=== PATIENT | male | born 1935 | race Hispanic/Latino ===

== ENCOUNTER 2018-10-08 11:52 | Inpatient (IN) | payer MEDICARE ==
[2018-10-08 12:16] VITALS: BMI 29.7
--- NOTE | 2018-10-08 12:43 | ED PDOC ---
Arrival/HPI - General Chief Complaint: Cough, Cold, Congestion Time Seen by Provider: 10/08/18 12:04 Historian: Patient, Family - History of Present Illness Narrative History of Present Illness (Text): 10/08/18 12:40 82 year old male, whose past medical history includes A-fibrillation on Coumadin, hypertension, and hypercholesterolemia, presents to the emergency department complaining of shortness of breath. Patient notes associated fever of 100.7, a productive cough for the past 3 weeks, and a runny nose. Patient saw his PMD earlier today who sent him in the the emergency department for further evaluation. He denies chills, headache, dizziness, chest pain, abdominal pain, nausea, vomiting, diarrhea, back pain, neck pain, or any other complaint. PMD: Dr. 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 - Musculoskeletal/Rheumatological Other/Comment: Ad knee replacement - Psychiatric Hx Depression: No Hx Emotional Abuse: No Hx Physical Abuse: No Hx Substance Use: No - Past Surgical History Past Surgical History: No Previous - Surgical History Hx Orthopedic Surgery: Yes (bilat knee replacement) - Anesthesia Hx Anesthesia: Yes - Suicidal Assessment Feels Threatened In Home Enviroment: No Family/Social History - Physician Review Nursing Documentation Reviewed: Yes Family/Social History: No Known Family HX Smoking Status: Former Smoker Hx Alcohol Use: No (quit 2 months ago) Hx Substance Use: No Hx Substance Use Treatment: No Allergies/Home Meds Allergies/Adverse Reactions: Allergies No Known Allergies Allergy (Verified 08/29/12 13:23) Home Medications: Home Meds Medication Instructions Recorded Confirmed Ascorbic Acid [Vitamin C] 1 tab PO DAILY 10/08/18 10/08/18 Calcium Carbonate [Calcium] 600 mg PO DAILY 10/08/18 10/08/18 Folic Acid 800 mg PO DAILY 10/08/18 10/08/18 Furosemide [Lasix] 1 tab PO DAILY 10/08/18 10/08/18 Glucosamine Sulfate Dipot Chlr 1,500 mg PO DAILY 10/08/18 10/08/18 [Glucosamine] Lisinopril [Zestril] 1 tab PO DAILY 10/08/18 10/08/18 Lovastatin 80 mg PO HS 10/08/18 10/08/18 Magnesium 1 tab PO DAILY 10/08/18 10/08/18 Potassium Chloride [Klor-Con M10] 1 tab PO DAILY 10/08/18 10/08/18 Timolol [Betimol] 1 drop LEFTEYE BID 10/08/18 10/08/18 Travoprost [Travatan Z] 1 drop BOTHEYES DAILY 10/08/18 10/08/18 Verapamil HCl [Verapamil Sr] 1 tab PO DAILY 10/08/18 10/08/18 Warfarin [Coumadin] 1 tab PO DAILY 10/08/18 10/08/18 hydroCHLOROthiazide [Hydrodiuril] 50 mg PO DAILY 10/08/18 10/08/18 Review of Systems - Physician Review All systems were reviewed & negative as marked: Yes - Review of Systems Constitutional: Fevers Respiratory: SOB, Cough, Sputum Cardiovascular: absent: Chest Pain Gastrointestinal: absent: Abdominal Pain, Diarrhea, Nausea, Vomiting Genitourinary Male: absent: Dysuria, Frequency Musculoskeletal: absent: Back Pain, Neck Pain Neurological: absent: Headache, Dizziness Physical Exam Vital Signs Reviewed: Yes Vital Signs Temp Pulse Resp BP Pulse Ox 10/08/18 11:52 98.9 F 60 18 91/73 L 86 L Temperature: Afebrile Blood Pressure: Hypotensive Pulse: Regular Respiratory Rate: Normal Appearance: Positive for: Well-Appearing, Non-Toxic, Comfortable Pain Distress: None Mental Status: Positive for: Alert and Oriented X 3 - Systems Exam Head: Present: Atraumatic, Normocephalic Pupils: Present: PERRL Extroacular Muscles: Present: EOMI Conjunctiva: Present: Normal Mouth: Present: Dry. No: Moist Mucous Membranes Neck: Present: Normal Range of Motion Respiratory/Chest: Present: Wheezes (wheezing bilaterally), Decreased Breath Sounds. No: Respiratory Distress, Accessory Muscle Use Cardiovascular: Present: Regular Rate and Rhythm, Normal S1, S2. No: Murmurs Abdomen: Present: Hernias (ventral hernia that is reducible ). No: Tenderness, Distention, Peritoneal Signs, Rebound, Guarding Back: Present: Normal Inspection Upper Extremity: Present: Normal Inspection. No: Cyanosis, Edema Lower Extremity: Present: Normal Inspection, Edema (+1 pitting edema bilateral lower extremities) Neurological: Present: GCS=15, CN II-XII Intact, Speech Normal Skin: Present: Warm, Dry, Normal Color. No: Rashes Psychiatric: Present: Alert, Oriented x 3, Normal Insight, Normal Concentration Medical Decision Making ED Course and Treatment: 10/08/18 12:40 Impression: 82 year old male who presents to the emergency department complaining of shortness of breath. Differential Diagnosis included but are not limited to: Pneumonia r/o sepsis r/o influenza Plan: -- VBG -- EKG -- Labs -- Chest X-ray -- Duoneb -- SOLU-medrol -- IV Fluids -- Blood Culutre -- Rapid Flu A/B -- Reassess and disposition Prior Visits: Notes and results from previous visits were reviewed. Progress Notes: EKG reviewed, shows: A-fib at 66 bpm with PVC and RBBB. 10/08/18 14:47 Chest X-ray reviewed by radiologist, shows: IMPRESSION: No active disease. 10/08/18 14:30 Patient is saturating at 92 on Oxygen. Lungs have better air entry now and more wheezing noted. He felt better but will continue on neb tx and start on BiPAP. 10/08/18 16:41 Patient's ABG reviewed. Patient lungs are still wheezing but improved. Case was discussed with Dr. Coburn and will admit to telemetry. He recommended Dr. Kenyon/Shayy for Cardiology. He was paged by Animal Behaviorist. Patient stable for Telemetry. 10/08/18 16:[address] Trinh who recommends ASA at this point and serial troponins. - Critical Care Critical Care Minutes: 60 minutes - Lab Interpretations I have reviewed the lab results: Yes - EKG Interpretation Interpreted by ED Physician: Yes Type: 12 lead EKG - Scribe Statement The provider has reviewed the documentation as recorded by the Laineibtong Isaacs Provider Scribe Attestation: All medical record entries made by the Scribe were at my direction and personally dictated by me. I have reviewed the chart and agree that the record accurately reflects my personal performance of the history, physical exam, medical decision making, and the department course for this patient. I have also personally directed, reviewed, and agree with the discharge instructions and disposition. Disposition/Present on Arrival - Present on Arrival Any Indicators Present on Arrival: No History of DVT/PE: No History of Uncontrolled Diabetes: No Urinary Catheter: No History of Decub. Ulcer: No History Surgical Site Infection Following: Orthopedic Procedures, None - Disposition Have Diagnosis and Disposition been Completed?: Yes Diagnosis: Respiratory distress Disposition: HOSPITALIZED Disposition Time: 16:54 Patient Plan: Admission Condition: GUARDED Referrals: Nish Wilcox MD [Primary Care Provider] - Follow up with primary Forms: [employer] ([place])
[2018-10-08] MEDS ORDERED: Albuterol-Ipratrop 3 mg / 0.5 (3 ml) UD IH STA ×3 (12:51→15:20)
[2018-10-08] MEDS ORDERED: Sodium Chloride 0.9% 500 ML IV STA (12:52)
[2018-10-08 13:21] LABS: VENOUS BLOOD GAS BASE EXCESS 5.6 mmol/L (0.0-2.0); VENOUS BLOOD GAS PO2 94 mm/Hg (30-55); VENOUS BLOOD PH 7.35 (7.32-7.43)
[2018-10-08 13:22] LABS: BASO # 0.03 K/mm3 (0.0-2.0); BASO % 0.5 % (0.0-3.0); GRAN # 3.99 (1.4-6.5); GRAN % 62.3 % (50.0-68.0); HEMOGLOBIN 13.5 g/dL (14.0-18.0); LYMPH # 1.5 (1.2-3.4); LYMPH % 23.1 % (22.0-35.0); MEAN CELL VOLUME 98.4 fl (80.0-105.0); MEAN CORPUSCULAR HEMOGLOBIN 31.3 pg (25.0-35.0); MEAN CORPUSCULAR HGB CONC 31.8 g/dl (31.0-37.0); MEAN PLATELET VOLUME 10.7 fl (7.0-11.0); MONO # 0.9 (0.1-0.6); MONO % 14.1 % (1.0-6.0); RBC 4.31 10^6/uL (3.5-6.1); RED CELL DISTRIBUTION WIDTH 14.1 % (11.5-14.5); WHITE BLOOD COUNT 6.4 10^3/uL (4.5-11.0)
[2018-10-08 13:28] LABS: BLOOD UREA NITROGEN 17 mg/dL (7-21); CALCIUM 8.9 mg/dL (8.4-10.5); GFR NON-AFRICAN AMERICAN > 60
[2018-10-08 13:29] LABS: INR 3.15; PARTIAL THROMBOPLASTIN TIME 40.6 Seconds (26.9-38.3); PROTHROMBIN TIME 35.6 SECONDS (9.4-12.5)
[2018-10-08 13:56] LABS: B-TYPE NATRIURETIC PEPTIDE 958 pg/mL (0-450); TROPONIN I 0.13 ng/mL
--- NOTE | 2018-10-08 14:12 | RAD ---
Date of service: 10/08/2018 HISTORY: sob r/o pna COMPARISON: No prior. FINDINGS: LUNGS: No active pulmonary disease. PLEURA: No significant pleural effusion identified, no pneumothorax apparent. CARDIOVASCULAR: No aortic atherosclerotic calcification present. Mild to moderate cardiomegaly mild vascular congestion OSSEOUS STRUCTURES: No significant abnormalities. VISUALIZED UPPER ABDOMEN: Normal. OTHER FINDINGS: None. IMPRESSION: No active disease.
[2018-10-08] MEDS ORDERED: cefTRIAXone 1 gm 1 GM/100 ML BAG IVPB STA (16:21)
[2018-10-08 16:31] LABS: ARTERIAL BLOOD GAS HCO3 33.5 mmol/L (21-28); ARTERIAL BLOOD GAS HEMOGLOBIN 13.2 g/dL (11.7-17.4); ARTERIAL BLOOD GAS O2 CAPACITY 18.2 mL/dl (16-24); ARTERIAL BLOOD GAS O2 CONTENT 17.5 ML/dl (15-23); ARTERIAL BLOOD GAS O2 SAT 96.4 % (95-98); ARTERIAL BLOOD GAS PCO2 68 mm/Hg (35-45); ARTERIAL BLOOD GAS TCO2 35.6 mmol.L (22-28)
[2018-10-08 19:15] LABS: VENOUS BLOOD GAS BASE EXCESS 5.3 mmol/L (0.0-2.0); VENOUS BLOOD GAS PO2 58 mm/Hg (30-55)
--- NOTE | 2018-10-08 23:00 | CARD ---
APPROVED REPORT Date of service: 10/08/2018 EKG Measurement Heart [id number] <Conclusion> Atrial fibrillation with premature ventricular or aberrantly conducted complexes Right bundle branch block Nonspecific T wave abnormality Abnormal ECG
--- NOTE | 2018-10-09 04:23 | CP.PCM.HP ---
<Diane Junior - Last Filed: 10/09/18 17:23> History of Present Illness - History of Present Illness History of Present Illness: Please note history as per EMR as patient was uncooperative and agitated and did not want to be interviewed 82 male with PMHx of Afib on coumadin, HTN, HLD presents to ER after a visit to his PMD. Patient reported shortness of breath saturating SpO2 of 83% in the office, accompanied with cough and fever. Patient stated his symptoms started 3 weeks ago however they became progressively worse the last few days. He complained of a productive cough and fever of 100.7F at home. He also complained of a runny nose. His PMD sent him in the the emergency department for further evaluation. 12 Point ROS performed and neg other than stated above PMHx: as above PSHx: knee surgery Med: refer to NOV SH: Former smoker quit many years ago, denies any etoh, or drugs FH: noncontributory Present on Admission - Present on Admission Any Indicators Present on Admission: No Review of Systems - Review of Systems Systems not reviewed;Unavailable: Uncooperative Past Patient History - Infectious Disease Hx of Infectious Diseases: None - Tetanus Immunizations Tetanus Immunization: Unknown - Past Social History Smoking Status: Former Smoker - CARDIAC Hx Cardiac Disorders: Yes Hx Cardia Arrhythmia: Yes (Afib) Hx Congestive Heart Failure: Yes Hx Hypercholesterolemia: Yes Hx Hypertension: Yes - PULMONARY Hx Respiratory Disorders: No Other/Comment: former smoker - NEUROLOGICAL Hx Neurological Disorder: No - HEENT Hx HEENT Problems: Yes Hx Cataracts: Yes Hx Glaucoma: Yes Other/Comment: 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 - RENAL Hx Chronic Kidney Disease: No - ENDOCRINE/METABOLIC Hx Endocrine Disorders: No - HEMATOLOGICAL/ONCOLOGICAL Hx Blood Disorders: No - INTEGUMENTARY Hx Dermatological Problems: No - MUSCULOSKELETAL/RHEUMATOLOGICAL Hx Musculoskeletal Disorders: Yes Hx Falls: No Hx Unsteady Gait: No Other/Comment: Ad knee replacement - GASTROINTESTINAL Hx Gastrointestinal Disorders: No - GENITOURINARY/GYNECOLOGICAL Hx Genitourinary Disorders: No - PSYCHIATRIC Hx Psychophysiologic Disorder: No Hx Depression: No Hx Emotional Abuse: No Hx Physical Abuse: No Hx Substance Use: No - SURGICAL HISTORY Hx Surgeries: Yes Hx Orthopedic Surgery: Yes (B/T knee replacement 2007) - ANESTHESIA Hx Anesthesia: Yes Meds Allergies/Adverse Reactions: Allergies Allergy/AdvReac Type Severity Reaction Status Date / Time No Known Allergies Allergy Verified 08/29/12 13:23 Physical Exam - Constitutional Appears: No Acute Distress, Agitated, Other (obese) - Head Exam Head Exam: ATRAUMATIC, NORMAL INSPECTION, NORMOCEPHALIC - Eye Exam Eye Exam: Normal appearance. absent: Conjunctival injection, Scleral icterus - ENT Exam ENT Exam: Mucous Membranes Moist - Respiratory Exam Respiratory Exam: Wheezes, NORMAL BREATHING PATTERN. absent: Accessory Muscle Use, Respiratory Distress - Cardiovascular Exam Cardiovascular Exam: Bradycardia, +S1, +S2 - GI/Abdominal Exam GI & Abdominal Exam: Normal Bowel Sounds, Soft. absent: Firm, Guarding, Rigid, Tenderness - Extremities Exam Extremities exam: Positive for: pedal edema - Neurological Exam Neurological exam: Alert, Oriented x3 - Psychiatric Exam Psychiatric exam: Agitated - Skin Skin Exam: Dry, Intact Results - Vital Signs Recent Vital Signs: Last Vital Signs Temp 98.5 F 10/09/18 02:00 Pulse 62 10/09/18 02:00 Resp 22 10/09/18 02:00 BP 134/87 10/09/18 02:00 Pulse Ox 98 10/09/18 02:00 - Labs Result Diagrams: 10/09/18 09:30 10/09/18 08:15 Labs: Laboratory Results - last 24 hr 10/08/18 10/08/18 10/08/18 13:00 13:00 13:00 WBC 6.4 RBC 4.31 Hgb 13.5 L Hct 42.4 MCV 98.4 MCH 31.3 MCHC 31.8 RDW 14.1 Plt Count 139 MPV 10.7 Gran % 62.3 Lymph % (Auto) 23.1 [place] % (Auto) 14.1 H Eos % (Auto) 0.0 L Baso % (Auto) 0.5 Gran # 3.99 Lymph # (Auto) 1.5 [place] # (Auto) 0.9 H Eos # (Auto) 0.0 Baso # (Auto) 0.03 PT INR APTT pCO2 pO2 94 H HCO3 ABG pH ABG Total CO2 ABG O2 Saturation ABG O2 Content ABG Base Excess ABG Hemoglobin ABG Carboxyhemoglobin POC ABG HHb (Measured) ABG Methemoglobin ABG O2 Capacity VBG pH 7.35 VBG pCO2 60.0 VBG HCO3 33.1 H VBG Total CO2 34.9 H VBG O2 Sat (Calc) 98.4 H VBG Base Excess 5.6 H VBG Potassium 4.0 Hgb O2 Saturation Sodium 144.0 143 Chloride 105.0 106 Glucose 120 H Lactate 2.1 FiO2 21.0 Potassium 4.2 Carbon Dioxide 31 Anion Gap 10 BUN 17 Creatinine 0.9 Est GFR ( Amer) > 60 Est GFR (Non-Af Amer) > 60 Random Glucose 118 H Calcium 8.9 Magnesium 2.1 Lactate Dehydrogenase 644 Total Creatine Kinase 134 Troponin I 0.13 H* NT-Pro-B Natriuret Pep 958 H Venous Blood Potassium 4.0 Influenza Typ A,B (EIA) 10/08/18 10/08/18 10/08/18 13:00 13:00 16:24 WBC RBC Hgb Hct MCV MCH MCHC RDW Plt Count MPV Gran % Lymph % (Auto) [place] % (Auto) Eos % (Auto) Baso % (Auto) Gran # Lymph # (Auto) [place] # (Auto) Eos # (Auto) Baso # (Auto) PT 35.6 H INR 3.15 APTT 40.6 H pCO2 68 H pO2 74.0 L HCO3 33.5 H ABG pH 7.30 L ABG Total CO2 35.6 H ABG O2 Saturation 96.4 ABG O2 Content 17.5 ABG Base Excess 4.9 H ABG Hemoglobin 13.2 ABG Carboxyhemoglobin 2.0 H POC ABG HHb (Measured) 3.5 ABG Methemoglobin 0.6 ABG O2 Capacity 18.2 VBG pH VBG pCO2 VBG HCO3 VBG Total CO2 VBG O2 Sat (Calc) VBG Base Excess VBG Potassium Hgb O2 Saturation 93.9 L Sodium Chloride Glucose Lactate FiO2 40.0 Potassium Carbon Dioxide Anion Gap BUN Creatinine Est GFR ( Amer) Est GFR (Non-Af Amer) Random Glucose Calcium Magnesium Lactate Dehydrogenase Total Creatine Kinase Troponin I NT-Pro-B Natriuret Pep Venous Blood Potassium Influenza Typ A,B (EIA) Negative for flu a/b 10/08/18 19:00 WBC RBC Hgb Hct MCV MCH MCHC RDW Plt Count MPV Gran % Lymph % (Auto) [place] % (Auto) Eos % (Auto) Baso % (Auto) Gran # Lymph # (Auto) [place] # (Auto) Eos # (Auto) Baso # (Auto) PT INR APTT pCO2 pO2 58 H HCO3 ABG pH ABG Total CO2 ABG O2 Saturation ABG O2 Content ABG Base Excess ABG Hemoglobin ABG Carboxyhemoglobin POC ABG HHb (Measured) ABG Methemoglobin ABG O2 Capacity VBG pH 7.30 L VBG pCO2 69.0 H* VBG HCO3 34.0 H VBG Total CO2 36.1 H VBG O2 Sat (Calc) 92.9 H VBG Base Excess 5.3 H VBG Potassium 4.4 Hgb O2 Saturation Sodium 142.0 Chloride 104.0 Glucose 161 H Lactate 1.1 FiO2 21.0 Potassium Carbon Dioxide Anion Gap BUN Creatinine Est GFR ( Amer) Est GFR (Non-Af Amer) Random Glucose Calcium Magnesium Lactate Dehydrogenase Total Creatine Kinase Troponin I NT-Pro-B Natriuret Pep Venous Blood Potassium 4.4 Influenza Typ A,B (EIA) Assessment & Plan - Assessment and Plan (Free Text) Assessment: 1. Acute on chronic COPD exacerbation 2. Hypercapnic respiratory distress requiring BiPAP 3. Acute bronchitis 4. Afib on coumadin 5. HTN 6. HLD 7. Supratherapeutic INR Plan: Patient's blood work, imaging, and vitals reviewed. Overnight patient was agitated, confused, and did not want to wear his BiPAP. Patient counseled thoroughly on the importance of BiPAP and having blood work drawn. Patient started on IV steroids and breathing treatments as per pulm. Patient also started on IV abx and Tamiflu as per ID for probable acute bronchitis but cannot rule out influenza. f/u procalcitonin. Patient's INR slightly elevated; will hold coumadin dose for today and recheck PT/INR in AM. Continue home medications for HTN and HLD. BiPAP setting as per pulm and are prn and HS. Patient on HHD. Will continue to monitor closely. Will get PT on board. Discussed with Dr. Irish Junior PGY3 <Karthikeyan Coburn S - Last Filed: 10/09/18 18:30> Results - Vital Signs Recent Vital Signs: Last Vital Signs Temp 97.3 F L 10/09/18 11:59 Pulse 57 L 10/09/18 13:35 Resp 18 10/09/18 11:59 BP 128/70 10/09/18 11:59 Pulse Ox 94 L 01/25/19 06:00 - Labs Result Diagrams: 10/09/18 09:30 10/09/18 08:15 Labs: Laboratory Results - last 24 hr 10/08/18 10/09/18 10/09/18 19:00 08:15 08:15 WBC RBC Hgb Hct MCV MCH MCHC RDW Plt Count MPV PT INR APTT pO2 58 H 60 H VBG pH 7.30 L 7.26 L VBG pCO2 69.0 H* 81.0 H* VBG HCO3 34.0 H 36.3 H VBG Total CO2 36.1 H 38.8 H VBG O2 Sat (Calc) 92.9 H 93.3 H VBG Base Excess 5.3 H 6.2 H VBG Potassium 4.4 4.5 Sodium 142.0 143.0 Chloride 104.0 104.0 Glucose 161 H 125 H Lactate 1.1 1.3 FiO2 21.0 21.0 Crit Value Called To Syl Crit Value Called By Ab Blood Gas Notified Time 830 Potassium Carbon Dioxide Anion Gap BUN Creatinine Est GFR ( Amer) Est GFR (Non-Af Amer) Random Glucose Calcium Total Bilirubin AST ALT Alkaline Phosphatase Troponin I 0.04 D Total Protein Albumin Globulin Albumin/Globulin Ratio Venous Blood Potassium 4.4 4.5 10/09/18 10/09/18 10/09/18 08:15 08:15 09:30 WBC 7.5 RBC 4.36 Hgb 13.9 L Hct 43.8 MCV 100.5 MCH 31.9 MCHC 31.7 RDW 13.9 Plt Count 178 MPV 11.2 H PT 36.4 H INR 3.22 APTT 40.0 H pO2 VBG pH VBG pCO2 VBG HCO3 VBG Total CO2 VBG O2 Sat (Calc) VBG Base Excess VBG Potassium Sodium 143 Chloride 103 Glucose Lactate FiO2 Crit Value Called To Crit Value Called By Blood Gas Notified Time Potassium 4.8 Carbon Dioxide 36 H Anion Gap 9 L BUN 26 H Creatinine 0.8 Est GFR ( Amer) > 60 Est GFR (Non-Af Amer) > 60 Random Glucose 125 H Calcium 9.1 Total Bilirubin 0.3 AST 45 ALT 33 Alkaline Phosphatase 71 Troponin I Total Protein 7.1 Albumin 3.8 Globulin 3.3 Albumin/Globulin Ratio 1.2 Venous Blood Potassium Assessment & Plan - Assessment and Plan (Free Text) Plan: Pt seen and examined by me. I have reviewed the note of the medical office worker and I agree with it. I have discussed the assessment and plan with the resident. I have reviewed the medications and the last labs. Pt with dyspnea. He came from Dr Wilcox's office. He was not open to talking with me. He needed multiple attempts to get information. He is on BIPAP. He is on Coumadin for his A fib. It will be placed on hold until he is therapeutic. His INR is elevated. He will be on Tamiflu for possible flu even though his screening test for flu is negative. PT will evaluaate. He may have delerium due to his illness. Continue his HTN medications.
[2018-10-09 08:31] LABS: VENOUS BLOOD GAS BASE EXCESS 6.2 mmol/L (0.0-2.0); VENOUS BLOOD GAS PO2 60 mm/Hg (30-55); VENOUS BLOOD PH 7.26 (7.32-7.43)
[2018-10-09 08:36] LABS: INR 3.22; PROTHROMBIN TIME 36.4 SECONDS (9.4-12.5)
[2018-10-09 08:44] LABS: ALBUMIN 3.8 g/dL (3.0-4.8); BLOOD UREA NITROGEN 26 mg/dL (7-21); CALCIUM 9.1 mg/dL (8.4-10.5); GFR NON-AFRICAN AMERICAN > 60
[2018-10-09 08:45] LABS: ALB/GLOB RATIO 1.2 (1.1-1.8); ALT/SGPT 33 U/L (7-56); AST/SGOT 45 U/L (17-59)
[2018-10-09 09:42] LABS: HEMOGLOBIN 13.9 g/dL (14.0-18.0); MEAN CELL VOLUME 100.5 fl (80.0-105.0); MEAN CORPUSCULAR HEMOGLOBIN 31.9 pg (25.0-35.0); MEAN CORPUSCULAR HGB CONC 31.7 g/dl (31.0-37.0); MEAN PLATELET VOLUME 11.2 fl (7.0-11.0); RBC 4.36 10^6/uL (3.5-6.1); RED CELL DISTRIBUTION WIDTH 13.9 % (11.5-14.5); WHITE BLOOD COUNT 7.5 10^3/uL (4.5-11.0)
--- NOTE | 2018-10-09 10:10 | CP.PCM.CON ---
<Almas Mcgraw - Last Filed: 10/09/18 13:07> History of Present Illness - History of Present Illness History of Present Illness: Infectious disease consult note: 82 M with PMHx of A-fibrillation on coumadin, hypertension, and hypercholesterolemia, presents following his PMD visit. Patient was reportedly shortness of breath saturating SPO2 of 83% in the office, accompanied with cough and fever. Patient states that his symptoms started 3 weeks ago however it has become progressively worse the last few days. He complains of productive cough and fever of 100.7F at home. He also complains of runny nose. His PMD sent him in the the emergency department for further evaluation. Infectious diesease consulted for fevers. 12 Point ROS performed and neg other than stated above PMHx: as above PSHx: knee surgery Med: refer to NOV SH: Former smoker quit many years ago, denies any etoh, or drugs FH: noncontributory Review of Systems - Review of Systems All systems: reviewed and no additional remarkable complaints except Past Patient History - Infectious Disease Hx of Infectious Diseases: None - Tetanus Immunizations Tetanus Immunization: Unknown - Past Social History Smoking Status: Former Smoker - CARDIAC Hx Cardiac Disorders: Yes Hx Cardia Arrhythmia: Yes (Afib) Hx Congestive Heart Failure: Yes Hx Hypercholesterolemia: Yes Hx Hypertension: Yes - PULMONARY Hx Respiratory Disorders: No Other/Comment: former smoker - NEUROLOGICAL Hx Neurological Disorder: No - HEENT Hx HEENT Problems: Yes Hx Cataracts: Yes Hx Glaucoma: Yes Other/Comment: 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 - RENAL Hx Chronic Kidney Disease: No - ENDOCRINE/METABOLIC Hx Endocrine Disorders: No - HEMATOLOGICAL/ONCOLOGICAL Hx Blood Disorders: No - INTEGUMENTARY Hx Dermatological Problems: No - MUSCULOSKELETAL/RHEUMATOLOGICAL Hx Musculoskeletal Disorders: Yes Hx Falls: No Hx Unsteady Gait: No Other/Comment: Ad knee replacement - GASTROINTESTINAL Hx Gastrointestinal Disorders: No - GENITOURINARY/GYNECOLOGICAL Hx Genitourinary Disorders: No - PSYCHIATRIC Hx Psychophysiologic Disorder: No Hx Depression: No Hx Emotional Abuse: No Hx Physical Abuse: No Hx Substance Use: No - SURGICAL HISTORY Hx Surgeries: Yes Hx Orthopedic Surgery: Yes (B/T knee replacement 2007) - ANESTHESIA Hx Anesthesia: Yes Meds Allergies/Adverse Reactions: Allergies Allergy/AdvReac Type Severity Reaction Status Date / Time No Known Allergies Allergy Verified 08/29/12 13:23 - Medications Medications: Current Medications Furosemide (Lasix) 40 mg IVP DAILY [facility] Hydrochlorothiazide (Hydrodiuril) 50 mg PO DAILY [facility] Metoprolol Tartrate (Lopressor) 25 mg PO Q12 [facility] Last Admin: 10/08/18 21:19 Dose: 25 mg Non-Formulary Medication (Timolol [Betimol]) 1 drop LEFTEYE BID [facility] Non-Formulary Medication (Travoprost [Travatan Z]) 1 drop BOTHEYES DAILY [facility] Verapamil HCl (Calan Sr Tab) 120 mg PO DAILY [facility] Physical Exam - Constitutional Appears: No Acute Distress - Head Exam Head Exam: ATRAUMATIC, NORMOCEPHALIC - Eye Exam Eye Exam: EOMI - ENT Exam ENT Exam: Mucous Membranes Moist - Respiratory Exam Respiratory Exam: Clear to Auscultation Bilateral (no r/r/w), Wheezes Additional comments: mild b/l wheezing - Cardiovascular Exam Cardiovascular Exam: REGULAR RHYTHM - GI/Abdominal Exam GI & Abdominal Exam: Normal Bowel Sounds, Soft - Extremities Exam Extremities exam: Positive for: pedal edema (1+ b/l). Negative for: calf tenderness - Neurological Exam Neurological exam: Alert, Normal Gait - Psychiatric Exam Psychiatric exam: Normal Mood - Skin Skin Exam: Normal Color, Warm Results - Vital Signs Recent Vital Signs: Last Vital Signs Temp 97.6 F 10/09/18 06:00 Pulse 58 L 10/09/18 06:00 Resp 18 10/09/18 06:00 BP 121/53 L 10/09/18 06:00 Pulse Ox 94 L 10/09/18 06:00 - Labs Result Diagrams: 10/09/18 09:30 10/09/18 08:15 Labs: Laboratory Results - last 24 hr 10/08/18 10/08/18 10/08/18 13:00 13:00 13:00 WBC 6.4 RBC 4.31 Hgb 13.5 L Hct 42.4 MCV 98.4 MCH 31.3 MCHC 31.8 RDW 14.1 Plt Count 139 MPV 10.7 Gran % 62.3 Lymph % (Auto) 23.1 [place] % (Auto) 14.1 H Eos % (Auto) 0.0 L Baso % (Auto) 0.5 Gran # 3.99 Lymph # (Auto) 1.5 [place] # (Auto) 0.9 H Eos # (Auto) 0.0 Baso # (Auto) 0.03 PT INR APTT pCO2 pO2 94 H HCO3 ABG pH ABG Total CO2 ABG O2 Saturation ABG O2 Content ABG Base Excess ABG Hemoglobin ABG Carboxyhemoglobin POC ABG HHb (Measured) ABG Methemoglobin ABG O2 Capacity VBG pH 7.35 VBG pCO2 60.0 VBG HCO3 33.1 H VBG Total CO2 34.9 H VBG O2 Sat (Calc) 98.4 H VBG Base Excess 5.6 H VBG Potassium 4.0 Hgb O2 Saturation Sodium 144.0 143 Chloride 105.0 106 Glucose 120 H Lactate 2.1 FiO2 21.0 Crit Value Called To Crit Value Called By Blood Gas Notified Time Potassium 4.2 Carbon Dioxide 31 Anion Gap 10 BUN 17 Creatinine 0.9 Est GFR ( Amer) > 60 Est GFR (Non-Af Amer) > 60 Random Glucose 118 H Calcium 8.9 Magnesium 2.1 Total Bilirubin AST ALT Alkaline Phosphatase Lactate Dehydrogenase 644 Total Creatine Kinase 134 Troponin I 0.13 H* NT-Pro-B Natriuret Pep 958 H Total Protein Albumin Globulin Albumin/Globulin Ratio Venous Blood Potassium 4.0 Influenza Typ A,B (EIA) 10/08/18 10/08/18 10/08/18 13:00 13:00 16:24 WBC RBC Hgb Hct MCV MCH MCHC RDW Plt Count MPV Gran % Lymph % (Auto) [place] % (Auto) Eos % (Auto) Baso % (Auto) Gran # Lymph # (Auto) [place] # (Auto) Eos # (Auto) Baso # (Auto) PT 35.6 H INR 3.15 APTT 40.6 H pCO2 68 H pO2 74.0 L HCO3 33.5 H ABG pH 7.30 L ABG Total CO2 35.6 H ABG O2 Saturation 96.4 ABG O2 Content 17.5 ABG Base Excess 4.9 H ABG Hemoglobin 13.2 ABG Carboxyhemoglobin 2.0 H POC ABG HHb (Measured) 3.5 ABG Methemoglobin 0.6 ABG O2 Capacity 18.2 VBG pH VBG pCO2 VBG HCO3 VBG Total CO2 VBG O2 Sat (Calc) VBG Base Excess VBG Potassium Hgb O2 Saturation 93.9 L Sodium Chloride Glucose Lactate FiO2 40.0 Crit Value Called To Crit Value Called By Blood Gas Notified Time Potassium Carbon Dioxide Anion Gap BUN Creatinine Est GFR ( Amer) Est GFR (Non-Af Amer) Random Glucose Calcium Magnesium Total Bilirubin AST ALT Alkaline Phosphatase Lactate Dehydrogenase Total Creatine Kinase Troponin I NT-Pro-B Natriuret Pep Total Protein Albumin Globulin Albumin/Globulin Ratio Venous Blood Potassium Influenza Typ A,B (EIA) Negative for flu a/b 10/08/18 10/09/18 10/09/18 19:00 08:15 08:15 WBC RBC Hgb Hct MCV MCH MCHC RDW Plt Count MPV Gran % Lymph % (Auto) [place] % (Auto) Eos % (Auto) Baso % (Auto) Gran # Lymph # (Auto) [place] # (Auto) Eos # (Auto) Baso # (Auto) PT INR APTT pCO2 pO2 58 H 60 H HCO3 ABG pH ABG Total CO2 ABG O2 Saturation ABG O2 Content ABG Base Excess ABG Hemoglobin ABG Carboxyhemoglobin POC ABG HHb (Measured) ABG Methemoglobin ABG O2 Capacity VBG pH 7.30 L 7.26 L VBG pCO2 69.0 H* 81.0 H* VBG HCO3 34.0 H 36.3 H VBG Total CO2 36.1 H 38.8 H VBG O2 Sat (Calc) 92.9 H 93.3 H VBG Base Excess 5.3 H 6.2 H VBG Potassium 4.4 4.5 Hgb O2 Saturation Sodium 142.0 143.0 Chloride 104.0 104.0 Glucose 161 H 125 H Lactate 1.1 1.3 FiO2 21.0 21.0 Crit Value Called To Syl Crit Value Called By Ab Blood Gas Notified Time 830 Potassium Carbon Dioxide Anion Gap BUN Creatinine Est GFR ( Amer) Est GFR (Non-Af Amer) Random Glucose Calcium Magnesium Total Bilirubin AST ALT Alkaline Phosphatase Lactate Dehydrogenase Total Creatine Kinase Troponin I 0.04 D NT-Pro-B Natriuret Pep Total Protein Albumin Globulin Albumin/Globulin Ratio Venous Blood Potassium 4.4 4.5 Influenza Typ A,B (EIA) 10/09/18 10/09/18 10/09/18 08:15 08:15 09:30 WBC 7.5 RBC 4.36 Hgb 13.9 L Hct 43.8 MCV 100.5 MCH 31.9 MCHC 31.7 RDW 13.9 Plt Count 178 MPV 11.2 H Gran % Lymph % (Auto) [place] % (Auto) Eos % (Auto) Baso % (Auto) Gran # Lymph # (Auto) [place] # (Auto) Eos # (Auto) Baso # (Auto) PT 36.4 H INR 3.22 APTT 40.0 H pCO2 pO2 HCO3 ABG pH ABG Total CO2 ABG O2 Saturation ABG O2 Content ABG Base Excess ABG Hemoglobin ABG Carboxyhemoglobin POC ABG HHb (Measured) ABG Methemoglobin ABG O2 Capacity VBG pH VBG pCO2 VBG HCO3 VBG Total CO2 VBG O2 Sat (Calc) VBG Base Excess VBG Potassium Hgb O2 Saturation Sodium 143 Chloride 103 Glucose Lactate FiO2 Crit Value Called To Crit Value Called By Blood Gas Notified Time Potassium 4.8 Carbon Dioxide 36 H Anion Gap 9 L BUN 26 H Creatinine 0.8 Est GFR ( Amer) > 60 Est GFR (Non-Af Amer) > 60 Random Glucose 125 H Calcium 9.1 Magnesium Total Bilirubin 0.3 AST 45 ALT 33 Alkaline Phosphatase 71 Lactate Dehydrogenase Total Creatine Kinase Troponin I NT-Pro-B Natriuret Pep Total Protein 7.1 Albumin 3.8 Globulin 3.3 Albumin/Globulin Ratio 1.2 Venous Blood Potassium Influenza Typ A,B (EIA) Assessment & Plan - Assessment and Plan (Free Text) Assessment: 82 M with PMHx of A-fibrillation on coumadin, hypertension, and hypercholesterolemia, presents following his PMD visit were he was reportedly sob with SPO2 of 83%, accompanied with cough and fever. r/o CAP and influenza. Patient also found to have elevated troponin. - Cont abx with Rocephin and Doxy - f/u septic workup - Rapid influenza neg - CXR negative - F/u cardiology recs - Cont to monitor clinically Case and plan was reviewed and discussed with Dr Garner. <Joe Garner - Last Filed: 10/09/18 14:56> Meds - Medications Medications: Current Medications Albuterol/Ipratropium (Duoneb 3 Mg/0.5 Mg (3 Ml) Ud) 3 ml IH [id number] [facility] Last Admin: 10/09/18 13:34 Dose: 3 ml Albuterol/Ipratropium (Duoneb 3 Mg/0.5 Mg (3 Ml) Ud) 3 ml IH Q2H PRN PRN Reason: Shortness of Breath Budesonide (Pulmicort Respules) 0.5 mg IH [id number] [facility] Fluticasone Propionate (Flonase) 1 actuation NS DAILY [facility] Last Admin: 10/09/18 12:39 Dose: 1 spr Furosemide (Lasix) 40 mg IVP DAILY [facility] Last Admin: 10/09/18 10:15 Dose: 40 mg Hydrochlorothiazide (Hydrodiuril) 50 mg PO DAILY [facility] Last Admin: 10/09/18 10:15 Dose: 50 mg Ceftriaxone Sodium (Rocephin 1 Gram Ivpb) 1 gm in 100 mls @ 100 mls/hr IVPB DAILY [facility]; Protocol Last Admin: 10/09/18 12:26 Dose: 100 mls/hr Doxycycline Hyclate 100 mg/ (Sodium Chloride) 100 mls @ 100 mls/hr IVPB Q12 [facility]; Protocol Methylprednisolone (Solu-Medrol) 40 mg IVP Q12 [facility] Last Admin: 10/09/18 12:27 Dose: 40 mg Metoprolol Tartrate (Lopressor) 25 mg PO Q12 [facility] Last Admin: 10/09/18 10:16 Dose: Not Given Non-Formulary Medication (Timolol [Betimol]) 1 drop LEFTEYE BID [facility] Last Admin: 10/09/18 12:27 Dose: Not Given Non-Formulary Medication (Travoprost [Travatan Z]) 1 drop BOTHEYES DAILY [facility] Last Admin: 10/09/18 12:27 Dose: Not Given Oseltamivir Phosphate (Tamiflu Cap) 75 mg PO BID [facility]; Protocol Stop: 10/14/18 13:14 Verapamil HCl (Calan Sr Tab) 120 mg PO DAILY [facility] Last Admin: 10/09/18 10:15 Dose: Not Given Results - Vital Signs Recent Vital Signs: Last Vital Signs Temp 97.3 F L 10/09/18 11:59 Pulse 57 L 10/09/18 13:35 Resp 18 10/09/18 11:59 BP 128/70 10/09/18 11:59 Pulse Ox 94 L 10/09/18 06:00 - Labs Result Diagrams: 10/09/18 09:30 10/09/18 08:15 Labs: Laboratory Results - last 24 hr 10/08/18 10/08/18 10/09/18 16:24 19:00 08:15 WBC RBC Hgb Hct MCV MCH MCHC RDW Plt Count MPV PT INR APTT pCO2 68 H pO2 74.0 L 58 H HCO3 33.5 H ABG pH 7.30 L ABG Total CO2 35.6 H ABG O2 Saturation 96.4 ABG O2 Content 17.5 ABG Base Excess 4.9 H ABG Hemoglobin 13.2 ABG Carboxyhemoglobin 2.0 H POC ABG HHb (Measured) 3.5 ABG Methemoglobin 0.6 ABG O2 Capacity 18.2 VBG pH 7.30 L VBG pCO2 69.0 H* VBG HCO3 34.0 H VBG Total CO2 36.1 H VBG O2 Sat (Calc) 92.9 H VBG Base Excess 5.3 H VBG Potassium 4.4 Hgb O2 Saturation 93.9 L Sodium 142.0 Chloride 104.0 Glucose 161 H Lactate 1.1 FiO2 40.0 21.0 Crit Value Called To Crit Value Called By Blood Gas Notified Time Potassium Carbon Dioxide Anion Gap BUN Creatinine Est GFR ( Amer) Est GFR (Non-Af Amer) Random Glucose Calcium Total Bilirubin AST ALT Alkaline Phosphatase Troponin I 0.04 D Total Protein Albumin Globulin Albumin/Globulin Ratio Venous Blood Potassium 4.4 10/09/18 10/09/18 10/09/18 08:15 08:15 08:15 WBC RBC Hgb Hct MCV MCH MCHC RDW Plt Count MPV PT 36.4 H INR 3.22 APTT 40.0 H pCO2 pO2 60 H HCO3 ABG pH ABG Total CO2 ABG O2 Saturation ABG O2 Content ABG Base Excess ABG Hemoglobin ABG Carboxyhemoglobin POC ABG HHb (Measured) ABG Methemoglobin ABG O2 Capacity VBG pH 7.26 L VBG pCO2 81.0 H* VBG HCO3 36.3 H VBG Total CO2 38.8 H VBG O2 Sat (Calc) 93.3 H VBG Base Excess 6.2 H VBG Potassium 4.5 Hgb O2 Saturation Sodium 143.0 143 Chloride 104.0 103 Glucose 125 H Lactate 1.3 FiO2 21.0 Crit Value Called To Syl Crit Value Called By Ab Blood Gas Notified Time 830 Potassium 4.8 Carbon Dioxide 36 H Anion Gap 9 L BUN 26 H Creatinine 0.8 Est GFR ( Amer) > 60 Est GFR (Non-Af Amer) > 60 Random Glucose 125 H Calcium 9.1 Total Bilirubin 0.3 AST 45 ALT 33 Alkaline Phosphatase 71 Troponin I Total Protein 7.1 Albumin 3.8 Globulin 3.3 Albumin/Globulin Ratio 1.2 Venous Blood Potassium 4.5 10/09/18 09:30 WBC 7.5 RBC 4.36 Hgb 13.9 L Hct 43.8 MCV 100.5 MCH 31.9 MCHC 31.7 RDW 13.9 Plt Count 178 MPV 11.2 H PT INR APTT pCO2 pO2 HCO3 ABG pH ABG Total CO2 ABG O2 Saturation ABG O2 Content ABG Base Excess ABG Hemoglobin ABG Carboxyhemoglobin POC ABG HHb (Measured) ABG Methemoglobin ABG O2 Capacity VBG pH VBG pCO2 VBG HCO3 VBG Total CO2 VBG O2 Sat (Calc) VBG Base Excess VBG Potassium Hgb O2 Saturation Sodium Chloride Glucose Lactate FiO2 Crit Value Called To Crit Value Called By Blood Gas Notified Time Potassium Carbon Dioxide Anion Gap BUN Creatinine Est GFR ( Amer) Est GFR (Non-Af Amer) Random Glucose Calcium Total Bilirubin AST ALT Alkaline Phosphatase Troponin I Total Protein Albumin Globulin Albumin/Globulin Ratio Venous Blood Potassium Assessment & Plan - Assessment and Plan (Free Text) Assessment: Infectious diseases Attending Physician Attestation Patient seen and examined, discussed with medical instrument technician. I have reviewed the patient's history of present illness, past medical, social, personal and family histories, pertinent physical exam findings, course so far in this hospital admission, pertinent laboratory and imaging results. I agree with the above findings, assessment and plan. In addition, started Rocephin and Doxycycline and Tamiflu for patient with probable acute bronchitis, cannot rule out viral illness such as Influenza. Reviewed CXR which did not show infiltrates. Will monitor clinically.
[2018-10-09] MEDS: Verapamil 120 mg ER Tab PO SCH (10:15)
[2018-10-09] MEDS ORDERED: Albuterol-Ipratrop 3 mg / 0.5 (3 ml) UD IH PRN (10:36)
[2018-10-09] MEDS ORDERED: levoFLOXacin 500 MG TAB PO SCH (10:45)
[2018-10-09] MEDS: cefTRIAXone 1 gm 1 GM/100 ML BAG IVPB SCH (12:26)
[2018-10-09] MEDS: MethylPREDNISolone 40 mg Vial IVP SCH ×2 (12:27→21:23)
[2018-10-09] MEDS: Non Formulary Medication (Travoprost [Travatan Z] 1 DROP) BOTHEYES SCH (12:27)
[2018-10-09] MEDS: Non Formulary Medication (Timolol [Betimol] 1 DROP) LEFTEYE SCH ×2 (12:27→18:02)
[2018-10-09] MEDS: Fluticasone Nasal 50 mcg/Spray NS SCH (12:39)
[2018-10-09] MEDS: Albuterol-Ipratrop 3 mg / 0.5 (3 ml) UD IH SCH ×2 (13:34→20:38)
--- NOTE | 2018-10-09 20:01 | CON ---
DATE: 10/09/2018 PULMONARY CONSULTATION REASON FOR PULMONARY CONSULTATION: Chronic obstructive pulmonary disease. REFERRING PHYSICIAN: Dr. Karthikeyan Coburn. SUBJECTIVE: The patient is an 82-year-old male, with past medical history significant for atrial fibrillation (on Coumadin), hypertension, hyperlipidemia, obesity, questionable chronic obstructive pulmonary disease (positive former smoker), who presents to [facility] with a 2-week history of worsening shortness of breath at rest, dyspnea on exertion, cough, and minimal sputum production. There is no history of chest pain, coughing up of blood, or pain brought on with deep respirations. The patient did state to low grade fevers at home. There have been no fevers measured in the hospital. No history of chills or infectious exposure. No history of night sweats,weight loss or appetite change prior to the above events. No history of calf pains. No history of syncope or diaphoresis. No history of recent travel or trauma. ALLERGIES: NO KNOWN ALLERGIES. FAMILY HISTORY: No inheritable diseases. HOME MEDICATIONS: Include folate, calcium, HydroDIURIL, travoprost, timolol, Zestril, Lasix, warfarin, verapamil, lovastatin. SOCIAL HISTORY: Positive for former tobacco usage. Also, positive for former alcohol abuse. REVIEW OF SYSTEMS: The patient also states a runny stuffy nose over the past 2 weeks. There is also a history of snoring and daytime somnolence. No acute urinary or gastrointestinal symptoms. Rest of the review of systems is negative. PHYSICAL EXAMINATION: GENERAL: The patient is not short of breath at rest. He is not using accessory muscles for breathing. VITAL SIGNS: Temperature is 97.6, pulse 61, respiratory rate 18, blood pressure 105/59. Oxygen saturation on nasal cannula - 95% (done with respiratory). HEENT: Normocephalic, atraumatic. No JVD. NECK: Text. CARDIOVASCULAR: Positive S1, S2. No S3 gallop. LUNGS: Decreased breath sounds at the bases. Mild bilateral rhonchi. Mild bilateral wheezing. GI: Abdomen is soft, nontender and nondistended. Bowel sounds are positive. EXTREMITIES: Positive for mild edema. No cyanosis or clubbing. Calves are nontender to palpation. SKIN: No acute rash. NEUROLOGIC: Limited at the present time. PERTINENT LABORATORY DATA: Chest x-ray was done yesterday and reviewed. There is no active pulmonary disease noted. Arterial blood gas was done yesterday on nasal cannula. Results are: PH 7.30, pCO2 68, pO2 of 74. CBC: White count 7.5K, hemoglobin 13.9, hematocrit 43.8, platelets of 178,000. INR 3.22. Complete metabolic profile: Carbon dioxide 36, BUN 26, glucose 125. Rest of the metabolic profile is within normal limits. Initial troponin 0.13. IMPRESSION: 1. Acute bronchitis. 2. Probable chronic obstructive pulmonary disease - possibly advanced. 3. Mild respiratory insufficiency. 4. [id number] myocardial infarction. 5. Atrial fibrillation. 6. Rule out obstructive sleep apnea. PLAN: I did discuss the case with the patient and his daughter at length. I have also reviewed the chart at length. The patient presents to [facility] with a 2-week history of worsening pulmonary symptoms. In addition to the above, the patient also states nasal symptoms over the past 2 weeks. Lastly, the patient did state to low-grade fevers at home. The fevers have appeared to resolve. I did review the chest x-ray as above. There is no active disease noted. I have also reviewed the arterial blood gas. I have also reviewed the arterial blood gas. There is a mild acute respiratory acidosis noted, in addition to the chronic respiratory acidosis. I did test the patient on nasal cannula this morning with the respiratory therapist. He is saturating very well on 2 liters nasal cannula. We will change the BiPAP at night and on a p.r.n. basis. On physical exam, the patient is in [id number] bronchospasm. I will start the patient on nebulizer treatments, inhaled steroids, and low-dose intravenous steroids. Given his above history, I will also start the patient on intravenous Rocephin. Lastly, I have also started the patient on nasal steroids. Cardiology evaluation has been ordered. The patient did present with a positive troponin. Infectious Disease evaluation has also been ordered. The patient does state feeling much better this morning, and is clinically much improved - compared to his initial presentation. The patient should receive a sleep study - as an outpatient. I did give him my card/information for a followup outpatient appointment. Additional pulmonary intervention will be based on the clinical status of the patient. I will discuss the above with the attending physician. Thank you very much for this pulmonary consultation. Abdiel Rubio MD [facility] # [id number] [facility]
[2018-10-09] MEDS: Budesonide 0.5 mg/2 ml Inhal Susp UD IH SCH (20:39)
--- NOTE | 2018-10-09 23:36 | CON ---
DATE: 10/09/2018 REQUESTING PHYSICIAN: Dr. Coburn REASON FOR CONSULTATION: Elevated troponin. HISTORY: This is an 82-year-old man known to us from prior encounters with a history of hypertension and chronic atrial fibrillation, who was admitted with worsening dyspnea and cough as well as fever. He states that symptoms have been present for the past several days. He is seen in the presence of his daughter. He denied any chest pain. In the emergency room, his troponin was noted to be elevated and evaluation was requested. He was last seen in the office over 5 years ago. A stress test at that time showed no evidence of ischemia. PAST HISTORY: Notable for the problems mentioned above. He does have chronic obesity. He has undergone prior knee replacement surgery. He has a history of hyperlipidemia. CURRENT MEDICATIONS: Include Calan SR 120 mg daily, doxycycline, DuoNeb inhaler, Flonase, hydrochlorothiazide, Lasix, metoprolol 25 mg b.i.d., Pulmicort, Rocephin, Solu-Medrol, Tamiflu and eyedrops. ALLERGIES: NONE. SOCIAL HISTORY: He is a former smoker. He denies alcohol use. He is retired. FAMILY HISTORY: Both parents are from age-related illness. REVIEW OF SYSTEMS: Ten-point review of systems is notable mainly for problems mentioned above. PHYSICAL EXAMINATION: GENERAL: He is an obese elderly man. VITAL SIGNS: His blood pressure was 106/60 with a pulse of 60 and atrial fibrillation, respirations are 14. He is currently afebrile. HEENT: Normocephalic, atraumatic. NECK: Supple. No JVD present. CHEST: Bilateral rhonchi are heard with scattered wheezing present. HEART: PMI is displaced laterally with an irregularly irregular rhythm. Systolic murmur is present in the lower left sternal border. ABDOMEN: Soft, obese, nontender, normoactive bowel sounds. EXTREMITIES: 1+ ankle edema. SKIN: Warm and dry. PSYCHIATRIC: Normal mood and affect. NEUROLOGIC: No gross motor or sensory deficits notable. DIAGNOSTIC DATA: Potassium is 4.8, BUN and creatinine are 26 and 0.8. White count 7.5, hemoglobin and hematocrit of 13.9 and 43.8 with platelet count of 178,000. INR is 3.22. Arterial blood gas revealed a pH of 7.3, pCO2 of 68 and pO2 of 74. Initial troponin was 0.13, followup is 0.04. CK is 134. BNP 958. Electrocardiogram reveals atrial fibrillation with aberrantly conducted beats versus PVCs, right bundle-branch block pattern is present. No acute ST-T changes are noted. Chest x-ray reveals a large cardiac silhouette with increased vascular markings. IMPRESSION: 1. Respiratory insufficiency with hypercapnia. 2. Chronic atrial fibrillation. 3. Elevated troponin, likely secondary to stress of illness, doubt acute myocardial infarction secondary to obstructive coronary artery disease. 4. Obesity. 5. History of hypertension. RECOMMENDATIONS: The current treatment should continue. Sodium and fluid restriction are advised. An echocardiogram will be ordered. Followup cardiac enzymes will be planned as well, and general conservative cardiac management would be most appropriate in this gentleman. Thank you for this consultation. I will be happy to follow along as needed. Bernardo Miramontes MD MTDD
[2018-10-10] MEDS: Albuterol-Ipratrop 3 mg / 0.5 (3 ml) UD IH SCH ×4 (03:31→19:38)
--- NOTE | 2018-10-10 06:57 | CP.PCM.PN ---
<Diane Junior - Last Filed: 10/10/18 13:27> Subjective - Date & Time of Evaluation Date of Evaluation: 10/10/18 Time of Evaluation: 08:00 - Subjective Subjective: Pgy3 Medicine progress note for Dr. Coburn Patient seen and examined at bedside. As per nursing no acute events overnight. Patient sitting up in bed and mentation much improved. Patient reports feeling better and that breathing has improved. Admits to a cough but denies fever, chills, chest pain, SOB, abd pain, nausea, vomiting, bowel/bladder complaints, pain in his legs b/l. Patient does have swelling in his legs b/l. He is agreeable to plan and treatment. Objective - Vital Signs/Intake and Output Vital Signs (last 24 hours): Temp Pulse Resp BP Pulse Ox 98 F 80 18 136/63 97 10/10/18 06:00 10/10/18 06:00 10/10/18 06:00 10/10/18 06:00 10/10/18 06:00 Intake and Output: 10/09/18 10/10/18 18:59 06:59 Intake Total 1040 1080 Output Total 1100 Balance -60 1080 - Medications Medications: Current Medications Albuterol/Ipratropium (Duoneb 3 Mg/0.5 Mg (3 Ml) Ud) 3 ml IH [id number] [facility] Last Admin: 10/10/18 03:31 Dose: 3 ml Albuterol/Ipratropium (Duoneb 3 Mg/0.5 Mg (3 Ml) Ud) 3 ml IH Q2H PRN PRN Reason: Shortness of Breath Budesonide (Pulmicort Respules) 0.5 mg IH [id number] [facility] Last Admin: 10/09/18 20:39 Dose: 0.5 mg Fluticasone Propionate (Flonase) 1 actuation NS DAILY [facility] Last Admin: 10/09/18 12:39 Dose: 1 spr Furosemide (Lasix) 40 mg IVP DAILY [facility] Last Admin: 10/09/18 10:15 Dose: 40 mg Hydrochlorothiazide (Hydrodiuril) 50 mg PO DAILY [facility] Last Admin: 10/09/18 10:15 Dose: 50 mg Ceftriaxone Sodium (Rocephin 1 Gram Ivpb) 1 gm in 100 mls @ 100 mls/hr IVPB DAILY [facility]; Protocol Last Admin: 10/09/18 12:26 Dose: 100 mls/hr Doxycycline Hyclate 100 mg/ (Sodium Chloride) 100 mls @ 100 mls/hr IVPB Q12 [facility]; Protocol Last Admin: 10/09/18 21:21 Dose: 100 mls/hr Methylprednisolone (Solu-Medrol) 40 mg IVP Q12 [facility] Last Admin: 10/09/18 21:23 Dose: 40 mg Metoprolol Tartrate (Lopressor) 25 mg PO Q12 [facility] Last Admin: 10/09/18 21:31 Dose: 25 mg Non-Formulary Medication (Timolol [Betimol]) 1 drop LEFTEYE BID [facility] Last Admin: 10/09/18 18:02 Dose: Not Given Non-Formulary Medication (Travoprost [Travatan Z]) 1 drop BOTHEYES DAILY [facility] Last Admin: 10/09/18 12:27 Dose: Not Given Oseltamivir Phosphate (Tamiflu Cap) 75 mg PO BID [facility]; Protocol Stop: 10/14/18 13:14 Last Admin: 10/09/18 18:01 Dose: 75 mg Verapamil HCl (Calan Sr Tab) 120 mg PO DAILY [facility] Last Admin: 10/09/18 10:15 Dose: Not Given - Labs Labs: 10/09/18 09:30 10/09/18 08:15 PT 36.4 SECONDS (9.4-12.5) H 10/09/18 08:15 INR 3.22 10/09/18 08:15 APTT 40.0 Seconds (26.9-38.3) H 10/09/18 08:15 - Additional Findings Additional findings: - Constitutional Appears: No Acute Distress - Head Exam Head Exam: ATRAUMATIC, NORMOCEPHALIC - Eye Exam Eye Exam: EOMI - ENT Exam ENT Exam: Mucous Membranes Moist - Respiratory Exam Respiratory Exam: Clear to Auscultation Bilateral (no r/r/w), Wheezes Additional comments: mild b/l wheezing - Cardiovascular Exam Cardiovascular Exam: REGULAR RHYTHM - GI/Abdominal Exam GI & Abdominal Exam: Normal Bowel Sounds, Soft - Extremities Exam Extremities exam: Positive for: pedal edema (1+ b/l). Negative for: calf te nderness - Neurological Exam Neurological exam: Alert, Normal Gait - Psychiatric Exam Psychiatric exam: Normal Mood - Skin Skin Exam: Normal Color, Warm Assessment and Plan - Assessment and Plan (Free Text) Assessment: 1. Acute on chronic COPD exacerbation- improving 2. Hypercapnic respiratory distress requiring BiPAP 3. Acute bronchitis 4. Chronic Afib on coumadin 5. HTN 6. HLD 7. Elevated troponin- resolved Plan: Patient's blood work, imaging, and vitals reviewed. Patient mentation improved and patient cooperative this AM. Patient's troponin no longer elevated- likely secondary to stress of illness doubtful of cardiac ischemia. Appreciate cardio reccs. Continue IV lasix at this time. Patient's daughter brought home eye drops which were continued. INR this AM is therapeutic- patient continued on home coumadin. Patient started on IV steroids and breathing treatments as per pulm. Patient also started on IV abx and Tamiflu as per ID for probable acute bronchitis but cannot rule out influenza. Procalcitonin <0.05. Continue home medications for HTN and HLD. BiPAP setting as per pulm and are prn and HS. Patient on HHD. Will continue to monitor closely. PT on board. Discussed with Dr. Irish Junior PGY3 <Karthikeyan Coburn S - Last Filed: 10/10/18 19:37> Objective - Vital Signs/Intake and Output Vital Signs (last 24 hours): Temp Pulse Resp BP Pulse Ox 97.8 F 64 18 130/70 95 10/10/18 16:47 10/10/18 16:47 10/10/18 16:47 10/10/18 16:47 10/10/18 16:47 Intake and Output: 10/10/18 10/11/18 18:59 06:59 Intake Total 1500 Output Total 1500 Balance 0 - Medications Medications: Current Medications Albuterol/Ipratropium (Duoneb 3 Mg/0.5 Mg (3 Ml) Ud) 3 ml IH [id number] [facility] Last Admin: 10/10/18 14:08 Dose: 3 ml Albuterol/Ipratropium (Duoneb 3 Mg/0.5 Mg (3 Ml) Ud) 3 ml IH Q2H PRN PRN Reason: Shortness of Breath Budesonide (Pulmicort Respules) 0.5 mg IH [id number] [facility] Last Admin: 10/10/18 08:12 Dose: 0.5 mg Doxycycline Hyclate (Doryx) 100 mg PO Q12 [facility]; Protocol Stop: 10/19/18 10:01 Last Admin: 10/10/18 11:14 Dose: 100 mg Fluticasone Propionate (Flonase) 1 actuation NS DAILY [facility] Last Admin: 10/10/18 09:27 Dose: 1 spr Furosemide (Lasix) 40 mg IVP DAILY [facility] Last Admin: 10/10/18 09:28 Dose: 40 mg Home Med (Home Med) 1 unit OU HS [facility] Home Med (Home Med) 1 unit OU BID [facility] Last Admin: 10/10/18 17:44 Dose: 1 unit Home Med (Home Med) 1 unit OS TID [facility] Last Admin: 10/10/18 17:44 Dose: 1 unit Hydrochlorothiazide (Hydrodiuril) 50 mg PO DAILY [facility] Last Admin: 10/09/18 10:15 Dose: 50 mg Ceftriaxone Sodium (Rocephin 1 Gram Ivpb) 1 gm in 100 mls @ 100 mls/hr IVPB DAILY [facility]; Protocol Last Admin: 10/10/18 09:28 Dose: 100 mls/hr Methylprednisolone (Solu-Medrol) 40 mg IVP Q12 [facility] Last Admin: 10/10/18 09:28 Dose: 40 mg Metoprolol Tartrate (Lopressor) 25 mg PO Q12 [facility] Last Admin: 10/10/18 09:27 Dose: 25 mg Oseltamivir Phosphate (Tamiflu Cap) 75 mg PO BID [facility]; Protocol Stop: 10/14/18 13:14 Last Admin: 10/10/18 17:42 Dose: 75 mg Verapamil HCl (Calan Sr Tab) 120 mg PO DAILY [facility] Last Admin: 10/10/18 09:27 Dose: 120 mg Warfarin Sodium (Coumadin) 2.5 mg PO 1800 [facility]; Protocol Last Admin: 10/10/18 17:43 Dose: 2.5 mg - Labs Labs: 10/10/18 07:00 10/10/18 07:00 PT 25.1 SECONDS (9.4-12.5) H 10/10/18 07:00 INR 2.22 10/10/18 07:00 APTT 33.7 Seconds (26.9-38.3) 10/10/18 07:00 Assessment and Plan - Assessment and Plan (Free Text) Plan: Pt seen and examined by me. I have reviewed the note of the clinical medical assistant and I agree with it. I have discussed the assessment and plan with the resident. I have reviewed the medications and the last labs. Pt with acute COPD and is on steroids. He has acute bronchitis and is on IV Abx and Tamiflu. A fib is controlled and is on Coumadin. HTN is controlled. Pt is on BIPAP. He had delerium and is much better today. He is more awake and feels well.
[2018-10-10 07:33] LABS: BASO # 0.01 K/mm3 (0.0-2.0); BASO % 0.1 % (0.0-3.0); HEMOGLOBIN 13.8 g/dL (14.0-18.0); LYMPH # 1.5 (1.2-3.4); LYMPH % 16.3 % (22.0-35.0); MEAN CELL VOLUME 97.7 fl (80.0-105.0); MEAN CORPUSCULAR HEMOGLOBIN 31.4 pg (25.0-35.0); MEAN CORPUSCULAR HGB CONC 32.1 g/dl (31.0-37.0); MEAN PLATELET VOLUME 11.3 fl (7.0-11.0); MONO # 0.6 (0.1-0.6); MONO % 6.4 % (1.0-6.0); RBC 4.4 10^6/uL (3.5-6.1); RED CELL DISTRIBUTION WIDTH 13.8 % (11.5-14.5); WHITE BLOOD COUNT 9.2 10^3/uL (4.5-11.0)
[2018-10-10 07:40] LABS: INR 2.22; PARTIAL THROMBOPLASTIN TIME 33.7 Seconds (26.9-38.3); PROTHROMBIN TIME 25.1 SECONDS (9.4-12.5)
[2018-10-10 07:56] LABS: ALB/GLOB RATIO 1.3 (1.1-1.8); ALT/SGPT 40 U/L (7-56); AST/SGOT 48 U/L (17-59); BLOOD UREA NITROGEN 32 mg/dL (7-21); CALCIUM 9.5 mg/dL (8.4-10.5); GFR NON-AFRICAN AMERICAN > 60
[2018-10-10] MEDS: Budesonide 0.5 mg/2 ml Inhal Susp UD IH SCH ×2 (08:12→19:38)
[2018-10-10] MEDS: Verapamil 120 mg ER Tab PO SCH (09:27)
[2018-10-10] MEDS: Fluticasone Nasal 50 mcg/Spray NS SCH (09:27)
[2018-10-10] MEDS: cefTRIAXone 1 gm 1 GM/100 ML BAG IVPB SCH (09:28)
[2018-10-10] MEDS: MethylPREDNISolone 40 mg Vial IVP SCH ×2 (09:28→21:22)
[2018-10-10] MEDS: Non Formulary Medication (Travoprost [Travatan Z] 1 DROP) BOTHEYES SCH (09:29)
[2018-10-10] MEDS: Non Formulary Medication (Timolol [Betimol] 1 DROP) LEFTEYE SCH (09:29)
--- NOTE | 2018-10-10 09:38 | PN ---
DATE: 10/10/2018 SUBJECTIVE: The patient is seen lying in bed on telemetry. He is comfortable at the present time. He did have transient bradycardia yesterday and his verapamil dose was held that he remains in atrial fibrillation with a controlled rate today. His dyspnea appears improved. He denies any chest pain. CURRENT MEDICATIONS: Include verapamil SR 120 mg daily, doxycycline, DuoNeb inhaler, Flonase, hydrochlorothiazide 50 mg daily, Lasix 40 mg daily, metoprolol 25 mg twice a day, Pulmicort inhaler, Rocephin, Solu-Medrol, Tamiflu, and Travatan and timolol eyedrops. OBJECTIVE: GENERAL: He is an obese elderly man. VITAL SIGNS: His blood pressure 136/60 with a pulse of 80 in atrial fibrillation, respirations are 14. He is afebrile. HEENT: No JVD. CHEST: Bilateral scattered rhonchi heard. HEART: PMI displaced laterally with irregularly irregular rhythm. ABDOMEN: Soft, obese, nontender with normoactive bowel sounds. EXTREMITIES: 1+ leg edema. DIAGNOSTICS: Potassium is 4.6, BUN and creatinine 32 and 0.7, glucose 160. White count 9.2, hemoglobin and hematocrit 13.8 and 43.0 with a platelet count of 190,000. IMPRESSION: 1. Respiratory insufficiency with hypercapnia, clinically improved. 2. Chronic obstructive pulmonary disease. 3. Chronic atrial fibrillation with controlled rate. 4. Recent elevated troponin likely due to stress of illness, doubt acute cardiac ischemia. 5. Obese and hypertension. RECOMMENDATIONS: Current antibiotics, respiratory therapy should be continued. Low-dose verapamil to be continued for now for rate control. Low-dose warfarin will be resumed and INR monitored given potential for interaction with current antibiotic therapy. In general, conservative cardiac management is advised this time. We will continue to follow and make further recommendations as appropriate. Bernardo Miramontes MD
--- NOTE | 2018-10-10 12:57 | PN ---
DATE: 10/10/2018 SUBJECTIVE: The patient is in bed, seen earlier today in 271, bed 2. The patient is awake, had no fevers. His family member was present in the room and he states he is doing better. PHYSICAL EXAMINATION: VITAL SIGNS: Temperature is 98, blood pressure is 136/63, heart rate of 80, respiratory rate of 18. HEENT: Unremarkable. NECK: Supple. LUNGS: Have decreased breath sounds. HEART: Normal S1, S2. ABDOMEN: Soft and nontender. LABORATORY DATA: Reveals the patient's white count of 9.2, hemoglobin of 13, platelets of 190. Chemistries reveals a BUN of 32, creatinine of 0.7, procalcitonin 0.05. Influenza is negative. Microbiology reveals the blood cultures are negative. MEDICATIONS: Review of orders reveals the patient to be on doxycycline IV, ceftriaxone, Solu-Medrol. ASSESSMENT AND PLAN: This is an 82-year-old male with atrial fibrillation, on Coumadin; hypertension; high cholesterol with morbid obesity, BMI of 41; with no known allergies, who was admitted with shortness of breath, hypoxia, cough and normal procalcitonin, and a chest x-ray with no active disease. Dr. Rubio's consultation from yesterday is reviewed, who states the patient probably has acute bronchitis in phase of a probable chronic obstructive lung disease, advanced mez-TS-esvrrxtor myocardial infarction, atrial fibrillation. Thus far, the blood cultures are negative. We will change the doxycycline to p.o. and will most likely continue the ceftriaxone for now. The patient is also on Tamiflu. We will discuss with Pulmonary negative chest x-ray, negative procalcitonin, and acute bronchitis, most likely we will discontinue the ceftriaxone in the next 24 hours. Today is day #2 of doxycycline, ceftriaxone, and Tamiflu. Kt Nieves MD
--- NOTE | 2018-10-10 13:52 | PN ---
DATE: 10/10/2018 SUBJECTIVE: The patient is sitting in the chair sleeping. He is accompanied by his daughter. The patient when awakened offers no complaints. He states that he is not short of breath and feels stronger. He denies cough. OBJECTIVE: GENERAL: On physical exam, the patient remains comfortable, in no acute distress. VITAL SIGNS: Stable. Blood pressure 130/70, heart rate 70, respiratory rate 16. HEENT: Normocephalic, atraumatic. There is no jugular venous distention. NECK: Supple. CARDIOPULMONARY: S1, S2. No murmur, gallop or rub. CHEST: Global decrease in breath sounds. Minimal rhonchi, rales and wheezes. ABDOMEN: Soft. Bowel sounds normoactive without mass, guarding, rebound or organomegaly. EXTREMITIES: Reveal trace edema. No clubbing or cyanosis. There is no Homans' sign. SKIN: No rash or excoriation. NEUROLOGIC: Awake and alert, lethargic when left alone. LYMPHATICS: No lymphadenopathy noted in the supraclavicular, cervical or inguinal areas. LABORATORY DATA: Chest x-ray reviewed, no active pulmonary disease noted. CLINICAL IMPRESSION: 1. Chronic obstructive pulmonary disease. 2. Status post respiratory insufficiency. 3. Jzd-KY-zcnhxrtxms infarction. 4. Atrial fibrillation. 5. The patient seems lethargic in the chair, but easily arousable, consistent with the presumed diagnosis of obstructive sleep apnea. PLAN: The patient will require a sleep study as soon as possible. He will likely need CPAP. Continue vigorous treatment of COPD. Evaluate for further abnormalities. Follow up arterial blood gas once pCO2 and pH have normalized. Decide on the need for home oxygen prior to discharge. Clinically better than as represented in the chart from yesterday. Case discussed with the registered nurse on the floor. No additional input at this time. We will follow closely. Juan Manuel Mitchell MD
[2018-10-10] MEDS: DORZOLAMIDE OS SCH ×2 (14:20→17:44)
[2018-10-10] MEDS: COMBIGAN OU SCH (17:44)
[2018-10-10] MEDS: LATANOPROST 0.005% OU SCH (21:26)
[2018-10-11] MEDS: Albuterol-Ipratrop 3 mg / 0.5 (3 ml) UD IH SCH ×4 (01:34→19:50)
[2018-10-11 06:34] LABS: BASO # 0.01 K/mm3 (0.0-2.0); BASO % 0.1 % (0.0-3.0); HEMOGLOBIN 13.4 g/dL (14.0-18.0); LYMPH # 1.4 (1.2-3.4); LYMPH % 15.4 % (22.0-35.0); MEAN CELL VOLUME 96.6 fl (80.0-105.0); MEAN CORPUSCULAR HEMOGLOBIN 30.8 pg (25.0-35.0); MEAN CORPUSCULAR HGB CONC 31.9 g/dl (31.0-37.0); MEAN PLATELET VOLUME 10.8 fl (7.0-11.0); MONO # 0.5 (0.1-0.6); MONO % 5.5 % (1.0-6.0); RBC 4.35 10^6/uL (3.5-6.1); RED CELL DISTRIBUTION WIDTH 13.7 % (11.5-14.5); WHITE BLOOD COUNT 9.1 10^3/uL (4.5-11.0)
[2018-10-11 06:39] LABS: INR 2.04; PARTIAL THROMBOPLASTIN TIME 33.9 Seconds (26.9-38.3)
[2018-10-11 06:43] LABS: ALB/GLOB RATIO 1.2 (1.1-1.8); ALT/SGPT 39 U/L (7-56); AST/SGOT 48 U/L (17-59); BLOOD UREA NITROGEN 32 mg/dL (7-21); CALCIUM 9.3 mg/dL (8.4-10.5); GFR NON-AFRICAN AMERICAN > 60
--- NOTE | 2018-10-11 07:08 | CP.PCM.PN ---
<Diane Junior - Last Filed: 10/11/18 12:40> Subjective - Date & Time of Evaluation Date of Evaluation: 10/11/18 Time of Evaluation: 07:45 - Subjective Subjective: Pgy3 Medicine progress note for Dr. Orosco Patient seen and examined at bedside. As per nursing no acute events overnight. Patient was on BiPAP and tolerated overnight. Daughter at bedside. Patient reported feeling much better this AM and denied any headache, dizziness, chest pain, SOB, cough, abd pain, nausea, vomiting, bowel/bladder complaints, pain in his legs b/l. Patient continues to have some b/l LE swelling. Eating well and in good spirits. Objective - Vital Signs/Intake and Output Vital Signs (last 24 hours): Temp Pulse Resp BP Pulse Ox 98.2 F 66 20 148/79 94 L 10/11/18 06:00 10/11/18 06:00 10/11/18 06:00 10/11/18 06:00 10/11/18 06:00 Intake and Output: 10/11/18 10/11/18 06:59 18:59 Intake Total 1750 Output Total 2000 Balance -250 - Medications Medications: Current Medications Albuterol/Ipratropium (Duoneb 3 Mg/0.5 Mg (3 Ml) Ud) 3 ml IH [id number] [facility] Last Admin: 10/11/18 01:34 Dose: 3 ml Albuterol/Ipratropium (Duoneb 3 Mg/0.5 Mg (3 Ml) Ud) 3 ml IH Q2H PRN PRN Reason: Shortness of Breath Budesonide (Pulmicort Respules) 0.5 mg IH [id number] [facility] Last Admin: 10/10/18 19:38 Dose: 0.5 mg Doxycycline Hyclate (Doryx) 100 mg PO Q12 [facility]; Protocol Stop: 10/19/18 10:01 Last Admin: 10/10/18 21:19 Dose: 100 mg Fluticasone Propionate (Flonase) 1 actuation NS DAILY [facility] Last Admin: 10/10/18 09:27 Dose: 1 spr Furosemide (Lasix) 40 mg IVP DAILY [facility] Last Admin: 10/10/18 09:28 Dose: 40 mg Home Med (Home Med) 1 unit OU HS [facility] Last Admin: 10/10/18 21:26 Dose: 1 unit Home Med (Home Med) 1 unit OU BID [facility] Last Admin: 10/10/18 17:44 Dose: 1 unit Home Med (Home Med) 1 unit OS TID [facility] Last Admin: 10/10/18 17:44 Dose: 1 unit Hydrochlorothiazide (Hydrodiuril) 50 mg PO DAILY [facility] Last Admin: 10/09/18 10:15 Dose: 50 mg Ceftriaxone Sodium (Rocephin 1 Gram Ivpb) 1 gm in 100 mls @ 100 mls/hr IVPB DAILY [facility]; Protocol Last Admin: 10/10/18 09:28 Dose: 100 mls/hr Methylprednisolone (Solu-Medrol) 40 mg IVP Q12 [facility] Last Admin: 10/10/18 21:22 Dose: 40 mg Metoprolol Tartrate (Lopressor) 25 mg PO Q12 [facility] Last Admin: 10/10/18 21:19 Dose: 25 mg Oseltamivir Phosphate (Tamiflu Cap) 75 mg PO BID [facility]; Protocol Stop: 10/14/18 13:14 Last Admin: 10/10/18 17:42 Dose: 75 mg Verapamil HCl (Calan Sr Tab) 120 mg PO DAILY [facility] Last Admin: 10/10/18 09:27 Dose: 120 mg Warfarin Sodium (Coumadin) 2.5 mg PO 1800 [facility]; Protocol Last Admin: 10/10/18 17:43 Dose: 2.5 mg - Labs Labs: 10/11/18 06:00 10/11/18 06:00 PT 23.0 SECONDS (9.4-12.5) H 10/11/18 06:00 INR 2.04 10/11/18 06:00 APTT 33.9 Seconds (26.9-38.3) 10/11/18 06:00 - Additional Findings Additional findings: - Constitutional Appears: No Acute Distress - Head Exam Head Exam: ATRAUMATIC, NORMOCEPHALIC - Eye Exam Eye Exam: EOMI - ENT Exam ENT Exam: Mucous Membranes Moist - Respiratory Exam Respiratory Exam: Clear to Auscultation Bilateral (no r/r/w), Wheezes Additional comments: mild b/l wheezing - Cardiovascular Exam Cardiovascular Exam: REGULAR RHYTHM - GI/Abdominal Exam GI & Abdominal Exam: Normal Bowel Sounds, Soft - Extremities Exam Extremities exam: Positive for: pedal edema (1+ b/l). Negative for: calf tenderness - Neurological Exam Neurological exam: Alert, Normal Gait - Psychiatric Exam Psychiatric exam: Normal Mood - Skin Skin Exam: Normal Color, Warm Assessment and Plan - Assessment and Plan (Free Text) Assessment: 1. Acute on chronic COPD requiring BiPAP- improving 2. Acute bronchitis 3. Chronic Afib on coumadin 4. HTN 5. HLD 6. Elevated troponin- resolved Plan: Patient's blood work, imaging, and vitals reviewed. Patient mentation improved and patient cooperative this AM. Patient's elevated troponin x 1 resolved- likely secondary to stress of illness doubtful of cardiac ischemia. Appreciate cardio reccs. Continue IV lasix at this time. Patient's daughter brought home eye drops which were continued. INR this AM is therapeutic- patient continued on home coumadin. Patient started on tapered IV steroids and breathing treatments as per pulm. Patient also started on IV abx and Tamiflu as per ID for probable acute bronchitis but cannot rule out influenza. Procalcitonin <0.05. Continue home medications for HTN and HLD. BiPAP setting as per pulm and are prn and HS. Patient on HHD. Will continue to monitor closely. PT on board recommends home with services. Discussed with Dr. Irish Junior PGY3 <Karthikeyan Coburn S - Last Filed: 10/11/18 21:52> Objective - Vital Signs/Intake and Output Vital Signs (last 24 hours): Temp Pulse Resp BP Pulse Ox 97.5 F L 68 20 132/71 97 10/11/18 18:00 10/11/18 18:00 10/11/18 18:00 10/11/18 18:00 10/11/18 18:00 Intake and Output: 10/11/18 10/12/18 18:59 06:59 Intake Total 3420 Output Total 2500 Balance 920 - Medications Medications: Current Medications Albuterol/Ipratropium (Duoneb 3 Mg/0.5 Mg (3 Ml) Ud) 3 ml IH [id number] [facility] Last Admin: 10/11/18 19:50 Dose: 3 ml Albuterol/Ipratropium (Duoneb 3 Mg/0.5 Mg (3 Ml) Ud) 3 ml IH Q2H PRN PRN Reason: Shortness of Breath Budesonide (Pulmicort Respules) 0.5 mg IH [id number] [facility] Last Admin: 10/11/18 19:50 Dose: 0.5 mg Doxycycline Hyclate (Doryx) 100 mg PO Q12 [facility]; Protocol Stop: 10/19/18 10:01 Last Admin: 10/11/18 09:29 Dose: 100 mg Fluticasone Propionate (Flonase) 1 actuation NS DAILY [facility] Last Admin: 10/11/18 13:51 Dose: 1 spr Furosemide (Lasix) 40 mg IVP DAILY [facility] Last Admin: 10/11/18 09:28 Dose: 40 mg Home Med (Home Med) 1 unit OU HS [facility] Last Admin: 10/10/18 21:26 Dose: 1 unit Home Med (Home Med) 1 unit OU BID [facility] Last Admin: 10/11/18 17:35 Dose: 1 unit Home Med (Home Med) 1 unit OS TID [facility] Last Admin: 10/11/18 17:38 Dose: 1 unit Hydrochlorothiazide (Hydrodiuril) 50 mg PO DAILY [facility] Last Admin: 10/09/18 10:15 Dose: 50 mg Ceftriaxone Sodium (Rocephin 1 Gram Ivpb) 1 gm in 100 mls @ 100 mls/hr IVPB DAILY [facility]; Protocol Last Admin: 10/11/18 09:30 Dose: 100 mls/hr Methylprednisolone (Solu-Medrol) 20 mg IVP Q12 [facility] Metoprolol Tartrate (Lopressor) 25 mg PO Q12 [facility] Last Admin: 10/11/18 09:28 Dose: 25 mg Oseltamivir Phosphate (Tamiflu Cap) 75 mg PO BID [facility]; Protocol Stop: 10/14/18 13:14 Last Admin: 10/11/18 17:40 Dose: 75 mg Polyethylene Glycol (Miralax) 17 gm PO DAILY [facility] Verapamil HCl (Calan Sr Tab) 120 mg PO DAILY [facility] Last Admin: 10/11/18 09:28 Dose: 120 mg Warfarin Sodium (Coumadin) 2.5 mg PO 1800 [facility]; Protocol Last Admin: 10/11/18 17:37 Dose: 2.5 mg - Labs Labs: 10/11/18 06:00 10/11/18 06:00 PT 23.0 SECONDS (9.4-12.5) H 10/11/18 06:00 INR 2.04 10/11/18 06:00 APTT 33.9 Seconds (26.9-38.3) 10/11/18 06:00 Assessment and Plan - Assessment and Plan (Free Text) Plan: Pt seen and examined by me. I have reviewed the note of the infertility medical assistant and I agree with it. I have discussed the assessment and plan with the resident. I anne carrera reviewed the medications and the last labs.Pt with acute COPD and is on Bipap. Pt is on Coumadin for A fib. Pt is on Tamiflu for possible flu. HTN is stable.
[2018-10-11] MEDS: Budesonide 0.5 mg/2 ml Inhal Susp UD IH SCH ×2 (07:54→19:50)
--- NOTE | 2018-10-11 09:13 | CARD ---
APPROVED REPORT Date of service: 10/10/2018 EXAM: Two-dimensional and M-mode echocardiogram with Doppler and color Doppler. INDICATION DYSPNEA, AF 2D DIMENSIONS Left Atrium (2D)4.9 (1.6-4.0cm)IVSd1.5 (0.7-1.1cm) LVDd4.5 (3.9-5.9cm)LVOT Diameter2.3 (1.8-2.4cm) PWd1.4 (0.7-1.1cm)LVDs3.4 (2.5-4.0cm) FS (%) 25.8 %LVEF (%)50.9 (>50%) M-Mode DIMENSIONS Aortic Root3.50 (2.2-3.7cm)Aortic Cusp Exc.1.10 (1.5-2.0cm) Aortic Valve AoV Peak Jauugppf842.0cm/sAoV VTI76.7cmAO Peak GR.49mmHg LVOT Peak Dzqiiiqn887.0cm/sLVOT VTI26.30cmAO Mean GR.31mmHg OFE (VMAX)1.16fc0NZM (VTI)1.42cm2 Mitral Valve MV E Arrdfrgd886.0cm/sMV E Peak Gr.82mmHg TDI Lateral E' Peak V13.90cm/sMedial E' Peak V9.46cm/sE/Lateral E'10.1 E/Medial E'14.9 Tricuspid Valve TR Peak Lpkfqwvm980ji/sRAP KLDWEELI12xlTkUJ Peak Gr.41mmHg [id number] LEFT VENTRICLE The left ventricle is normal size. There is moderate concentric left ventricular hypertrophy. The left ventricular function is normal. The left ventricular ejection fraction is within the normal range. There is normal LV segmental wall motion. RIGHT VENTRICLE The right ventricle is normal size. The right ventricular systolic function is normal. ATRIA The left atrium is moderately dilated. The right atrium is moderately dilated. The interatrial septum is intact with no evidence for an atrial septal defect. AORTIC VALVE The aortic valve is moderately calcified. No aortic regurgitation is present. There is moderate valvular aortic stenosis. MITRAL VALVE Mitral annular calcification is moderate. Mitral regurgitation is mild. TRICUSPID VALVE The tricuspid valve is normal in structure. There is moderate tricuspid regurgitation. PULMONIC VALVE The pulmonary valve is normal in structure. GREAT VESSELS The aortic root is normal in size. The IVC is normal in size and collapses >50% with inspiration. PERICARDIAL EFFUSION There is no pleural effusion. There is no pericardial effusion. <Conclusion> Biatrial enlargement. Normal LV size and systolic function. Moderate concentric LVH. Moderate . Moderate TR. Mild MR.
[2018-10-11] MEDS: Verapamil 120 mg ER Tab PO SCH (09:28)
[2018-10-11] MEDS: MethylPREDNISolone 40 mg Vial IVP SCH (09:28)
[2018-10-11] MEDS: COMBIGAN OU SCH ×2 (09:29→17:35)
[2018-10-11] MEDS: DORZOLAMIDE OS SCH ×3 (09:29→17:38)
[2018-10-11] MEDS: cefTRIAXone 1 gm 1 GM/100 ML BAG IVPB SCH (09:30)
[2018-10-11] MEDS ORDERED: MethylPREDNISolone 40 mg Vial IVP SCH (11:11)
--- NOTE | 2018-10-11 12:40 | PN ---
DATE: 10/11/2018 SUBJECTIVE: The patient is in bed in no acute distress, nontoxic. PHYSICAL EXAMINATION: VITAL SIGNS: Temperature is 98, blood pressure is 140/70, respiratory rate of 18. HEENT: Unremarkable. NECK: Supple. LUNGS: Have decreased breath sounds. HEART: Normal S1, S2. ABDOMEN: Soft, nontender. LABORATORY EXAMINATION: Reveals a white count is 9.1, hemoglobin of 13. BUN of 32, creatinine of 0.8. Procalcitonin is 0.05. Serology influenza is negative. Microbiology reveals the blood cultures are negative and the patient had an echo yesterday was read by Dr. Bernardo Miramontes, bilateral biatrial enlargement, normal left side, left ventricular size systolic function. Moderate concentric left ventricular hypertrophy. ASSESSMENT AND PLAN: This is an 82-year-old male with atrial fibrillation on Coumadin, hypertension, high cholesterol, morbid obesity, BMI of 41 was admitted with shortness of breath, hypoxia, cough, normal procalcitonin and chest x-ray with no active disease, acute bronchitis, chronic obstructive lung disease and hxk-UH-bzihyfpau myocardial infarction, atrial fibrillation, negative cultures and with negative procalcitonin. On p.o. doxycycline, IV ceftriaxone, Solu-Medrol. The patient is also on Tamiflu day #3 of the antibiotics, would complete 5 days of Tamiflu and 5-7 days of p.o. doxycycline and discontinue the ceftriaxone within the next 24 hours. Kt Nieves MD
[2018-10-11] MEDS: Fluticasone Nasal 50 mcg/Spray NS SCH (13:51)
--- NOTE | 2018-10-11 16:18 | PN ---
DATE: 10/11/2018 PULMONARY PROGRESS NOTE SUBJECTIVE: The patient is awake and alert today with family at the bedside. We have discussed at great length the findings of yesterday with the patient who was sitting, sleeping in the chair. We have discussed the possibility of obstructive sleep apnea. The patient and family member agree that once the patient is discharged from the hospital, he will seek further attention regarding this life-threatening diagnosis.. Today the patient is doing well. He is awake and alert, oriented. He feels fine without any shortness of breath. There is no cough. OBJECTIVE: GENERAL: On physical examination, the patient is sitting awake and alert. VITAL SIGNS: Stable. Blood pressure 130/70, heart rate 72, respiratory rate 18. HEENT: Normocephalic, atraumatic. There is no jugular venous distention. NECK: Supple without bruit. CARDIOPULMONARY: S1, S2 without murmur, gallop or rub. CHEST: Global decrease in breath sounds; rhonchi and rales from yesterday seem to have resolved. ABDOMEN: Soft. Bowel sounds normoactive without mass, guarding, rebound or organomegaly. EXTREMITIES: Reveal no clubbing, cyanosis or edema. SKIN: No rash or excoriation. NEUROLOGIC: No focal findings noted. CLINICAL IMPRESSION: 1. Rule out obstructive sleep apnea. 2. Chronic obstructive pulmonary disease. 3. Status post respiratory insufficiency/respiratory failure. 4. Non-ST myocardial infarction. 5. Atrial fibrillation. PLAN The patient will have a polysomnography upon discharge. The patient will continue to be treated for chronic obstructive pulmonary disease. Cardiology evaluation continues for non-ST myocardial infarction and arrhythmia. We will follow closely with you and decide on the need for further intervention based on clinical status. Methylprednisolone will be decreased further. Thank you for the opportunity to continue to care for this lucian gentleman. Juan Manuel Mitchell MD
--- NOTE | 2018-10-11 18:15 | PN ---
DATE: 10/11/2018 SUBJECTIVE: The patient is seen lying in bed on telemetry. He is currently comfortable. He denies any dyspnea. He has had no recurrent bradyarrhythmias noted. He states his dyspnea is improved. CURRENT MEDICATIONS: Include Calan SR 120 mg daily, Coumadin, doxycycline, DuoNeb inhaler, Flonase, and Lasix 40 mg daily. PHYSICAL EXAMINATION: GENERAL: He is an obese elderly man. VITAL SIGNS: Blood pressure is 140/80 with pulse of 70 and in atrial fibrillation, respirations are 16, and he is afebrile. HEENT: Normocephalic and atraumatic. NECK: Supple. No JVD noted. CHEST: Bilateral scattered rhonchi heard with scant expiratory wheezing. HEART: PMI displaced laterally with systolic murmur left sternal border. ABDOMEN: Soft and nontender with normoactive bowel sounds. EXTREMITIES: 1+ ankle edema. DIAGNOSTIC DATA: Potassium 4.6 and BUN and creatinine 32 and 0.8. White count 9.1, hemoglobin and hematocrit 13.4 and 42 with platelet count of 177,000. INR is 2.04. Echocardiogram was reviewed and reveals evidence of biatrial enlargement, moderate concentric LVH, normal LV size and systolic function with moderate tricuspid regurgitation and moderate aortic stenosis as well as mild mitral regurgitation. IMPRESSION: 1. Chronic obstructive pulmonary disease exacerbation, clinically improved. 2. Chronic obesity. 3. Aortic stenosis. 4. Chronic atrial fibrillation with controlled rate. 5. Recent respiratory insufficiency with hypercapnia, clinically improved. RECOMMENDATIONS: His current medications should continue for now. Continue conservative cardiac management is advised at this time. Outpatient followup for monitoring of his aortic valve disease that will be planned. We will be happy to follow and make further recommendations as appropriate. Bernardo Miramontes MD
[2018-10-11] MEDS ORDERED: POLYETHYLENE GLYCOL 3350 17 GM/Dose PACKET PO ONE (18:31)
[2018-10-11] MEDS: LATANOPROST 0.005% OU SCH (22:43)
[2018-10-12] MEDS: Albuterol-Ipratrop 3 mg / 0.5 (3 ml) UD IH SCH ×2 (01:43→09:26)
--- NOTE | 2018-10-12 05:36 | CP.PCM.DIS ---
<Diane Junior - Last Filed: 10/12/18 13:05> Provider - Provider Date of Admission: 10/08/18 16:37 Attending physician: Karthikeyan Coburn MD Primary care physician: Nish Wilcox MD Consults: 10/08/18 16:05 Consult [Physician Consult] Stat Comment: Consulting Provider: Bernardo Miramontes Consulting Physician: Bernardo Miramontes Reason for Consult: NSTEMI 10/08/18 20:12 Consult [Physician Consult] Routine Comment: Consulting Provider: Kt Nieves Consulting Physician: Kt Nieves Reason for Consult: fever 10/08/18 22:08 Social Work Referral Routine Comment: Baylock risk assessment score 7 Physician Instructions: Reason For Exam: Protocol 10/08/18 22:55 Transition In Care/Readmission Reduction Routine Comment: Physician Instructions: Reason For Exam: protocol 10/09/18 10:04 Physician Consult Routine Comment: Consulting Provider: Abdiel Rubio Consulting Physician: Abdiel Rubio Reason for Consult: Co2 retention 10/11/18 13:04 Case Management Referral Routine Comment: Physician Instructions: Reason For Exam: PT recommends home with services Reason for Referral: Discharge Planning Time Spent in preparation of Discharge (in minutes): 45 Hospital Course - Lab Results Lab Results: Micro Results 10/08/18 13:30 Blood-Venous Blood Culture - Preliminary NO GROWTH AFTER 3 DAYS 10/08/18 13:00 Blood-Venous Blood Culture - Preliminary NO GROWTH AFTER 3 DAYS Most Recent Lab Values WBC 9.1 10^3/uL (4.5-11.0) 10/11/18 06:00 RBC 4.35 10^6/uL (3.5-6.1) 10/11/18 06:00 Hgb 13.4 g/dL (14.0-18.0) L 10/11/18 06:00 Hct 42.0 % (42.0-52.0) 10/11/18 06:00 MCV 96.6 fl (80.0-105.0) 10/11/18 06:00 MCH 30.8 pg (25.0-35.0) 10/11/18 06:00 MCHC 31.9 g/dl (31.0-37.0) 10/11/18 06:00 RDW 13.7 % (11.5-14.5) 10/11/18 06:00 Plt Count 177 10^3/uL (120.0-450.0) 10/11/18 06:00 MPV 10.8 fl (7.0-11.0) 10/11/18 06:00 Gran % 62.3 % (50.0-68.0) 10/08/18 13:00 Neut % (Auto) 79.0 % (50.0-68.0) H 10/11/18 06:00 Lymph % (Auto) 15.4 % (22.0-35.0) L 10/11/18 06:00 Cooke % (Auto) 5.5 % (1.0-6.0) 10/11/18 06:00 Eos % (Auto) 0.0 % (1.5-5.0) L 10/11/18 06:00 Baso % (Auto) 0.1 % (0.0-3.0) 10/11/18 06:00 Gran # 3.99 (1.4-6.5) 10/08/18 13:00 Lymph # (Auto) 1.4 (1.2-3.4) 10/11/18 06:00 Cooke # (Auto) 0.5 (0.1-0.6) 10/11/18 06:00 Eos # (Auto) 0.0 (0.0-0.7) 10/11/18 06:00 Baso # (Auto) 0.01 K/mm3 (0.0-2.0) 10/11/18 06:00 Absolute Neuts (auto) 7.18 (1.4-6.5) H 10/11/18 06:00 PT 23.0 SECONDS (9.4-12.5) H 10/11/18 06:00 INR 2.04 10/11/18 06:00 APTT 33.9 Seconds (26.9-38.3) 10/11/18 06:00 pCO2 68 mm/Hg (35-45) H 10/08/18 16:24 pO2 60 mm/Hg (30-55) H 10/09/18 08:15 HCO3 33.5 mmol/L (21-28) H 10/08/18 16:24 ABG pH 7.30 (7.35-7.45) L 10/08/18 16:24 ABG Total CO2 35.6 mmol.L (22-28) H 10/08/18 16:24 ABG O2 Saturation 96.4 % (95-98) 10/08/18 16:24 ABG O2 Content 17.5 ML/dl (15-23) 10/08/18 16:24 ABG Base Excess 4.9 mmol/L (-2.0-3.0) H 10/08/18 16:24 ABG Hemoglobin 13.2 g/dL (11.7-17.4) 10/08/18 16:24 ABG Carboxyhemoglobin 2.0 % (0.5-1.5) H 10/08/18 16:24 POC ABG HHb (Measured) 3.5 % (0-5) 10/08/18 16:24 ABG Methemoglobin 0.6 % (0.0-3.0) 10/08/18 16:24 ABG O2 Capacity 18.2 mL/dl (16-24) 10/08/18 16:24 VBG pH 7.26 (7.32-7.43) L 10/09/18 08:15 VBG pCO2 81.0 (40-60) H* 10/09/18 08:15 VBG HCO3 36.3 mmol/l (21-28) H 10/09/18 08:15 VBG Total CO2 38.8 mmol.L (22-28) H 10/09/18 08:15 VBG O2 Sat (Calc) 93.3 % (40-65) H 10/09/18 08:15 VBG Base Excess 6.2 mmol/L (0.0-2.0) H 10/09/18 08:15 VBG Potassium 4.5 mmol/L (3.6-5.2) 10/09/18 08:15 Hgb O2 Saturation 93.9 % (95.0-98.0) L 10/08/18 16:24 Sodium 143.0 mmol/L (132-148) 10/09/18 08:15 Chloride 104.0 mmol/L (98-107) 10/09/18 08:15 Glucose 125 mg/dl (75-110) H 10/09/18 08:15 Lactate 1.3 mmol/L (0.7-2.1) 10/09/18 08:15 FiO2 21.0 % 10/09/18 08:15 Crit Value Called To Syl 10/09/18 08:15 Crit Value Called By 10/09/18 08:15 Blood Gas Notified Time 830 10/09/18 08:15 Sodium 141 mmol/L (132-148) 10/11/18 06:00 Potassium 4.6 mmol/L (3.6-5.0) 10/11/18 06:00 Chloride 98 mmol/L (98-107) 10/11/18 06:00 Carbon Dioxide 36 mmol/L (21-33) H 10/11/18 06:00 Anion Gap 11 (10-20) 10/11/18 06:00 BUN 32 mg/dL (7-21) H 10/11/18 06:00 Creatinine 0.8 mg/dl (0.8-1.5) 10/11/18 06:00 Est GFR ( Amer) > 60 10/11/18 06:00 Est GFR (Non-Af Amer) > 60 10/11/18 06:00 Random Glucose 150 mg/dL (70-110) H 10/11/18 06:00 Calcium 9.3 mg/dL (8.4-10.5) 10/11/18 06:00 Phosphorus 4.1 mg/dL (2.5-4.5) 10/11/18 06:00 Magnesium 2.3 mg/dL (1.7-2.2) H 10/11/18 06:00 Total Bilirubin 0.6 mg/dL (0.2-1.3) 10/11/18 06:00 AST 48 U/L (17-59) 10/11/18 06:00 ALT 39 U/L (7-56) 10/11/18 06:00 Alkaline Phosphatase 68 U/L (38-126) 10/11/18 06:00 Lactate Dehydrogenase 644 U/L (333-699) 10/08/18 13:00 Total Creatine Kinase 134 U/L (35-230) 10/08/18 13:00 Troponin I 0.04 ng/mL D 10/09/18 08:15 NT-Pro-B Natriuret Pep 958 pg/mL (0-450) H 10/08/18 13:00 Total Protein 7.2 g/dL (5.8-8.3) 10/11/18 06:00 Albumin 4.0 g/dL (3.0-4.8) 10/11/18 06:00 Globulin 3.3 gm/dL 10/11/18 06:00 Albumin/Globulin Ratio 1.2 (1.1-1.8) 10/11/18 06:00 Procalcitonin < 0.05 NG/ML (0.19-0.49) L 10/09/18 08:15 Venous Blood Potassium 4.5 mmol/L (3.6-5.2) 10/09/18 08:15 Influenza Typ A,B (EIA) Negative for flu a/b (NEGATIVE) 10/08/18 13:00 - Hospital Course Hospital Course: Upon Admission As per HPI: "82 male with PMHx of Afib on coumadin, HTN, HLD presents to ER after a visit to his PMD. Patient reported shortness of breath saturating SpO2 of 83% in the office, accompanied with cough and fever. Patient stated his symptoms started 3 weeks ago however they became progressively worse the last few days. He complained of a productive cough and fever of 100.7F at home. He also complained of a runny nose. His PMD sent him in the the emergency department for further evaluation." Hospital Course Patient was admitted to [facility] for further management. Overnight patient was agitated, confused, and did not want to wear his BiPAP. Patient's troponin was elevated x 1 and normalized thereafter. As per cardio it was likely secondary to stress of illness doubtful of cardiac ischemia. Patient was on IV lasix. Patient counseled thoroughly on the importance of BiPAP and having blood work drawn. Patient started on tapered steroids and breathing treatments as per pulm. Patient also started on IV abx and Tamiflu as per ID for probable acute bronchitis. Procalcitonin <0.05. Patient's INR slightly elevated and coumadin was held until INR was therapeutic. Continued home medications for HTN and HLD. Patient's daughter brought home eye drops which were continued. BiPAP setting as per pulm prn and HS. Patient clinically improved and on day of discharge was deemed medically optimized for discharge. Discharge Instructions You are being discharged from [facility]. Upon discharge please take the following medications as prescribed- you will have medications delivered to your bedside: -Prednisone 10mg taper as follows for 9 days total- Disp#18: Prednisone 30mg daily for 3 days Prednisone 20mg daily for 3 days Prednisone 10mg daily for 3 days -Tamiflu 75mg 1 tab twice daily for 2 more days- first dose tonight 10/11/18- Disp#3 -Doxycycline 100mg 1 tab twice daily for 8 more days- first dose tonight 10/11/18- Disp#15 - Lopressor 25mg 1 tab twice daily Disp#28 Please STOP taking Lisinopril 20mg daily. Please resume all other home medications. Please follow up with your PMD Dr. Wilcox within 7 days of discharge. Please also follow up with pulmonology within 10 days of discharge. You will need a sleep study as an outpatient. Please follow up with your ham stringer Dr. Miramontes within 10 days of discharge. If symptoms return please visit your nearest Emergency Room. Instructions discussed in detail with patient who understands and agreed. Please note this is a discharge summary. For full hospital course please refer to EMR. Discharge Exam - Head Exam Head Exam: ATRAUMATIC, NORMAL INSPECTION, NORMOCEPHALIC - Additional Findings Additional findings: - Constitutional Appears: No Acute Distress - Head Exam Head Exam: ATRAUMATIC, NORMOCEPHALIC - Eye Exam Eye Exam: EOMI - ENT Exam ENT Exam: Mucous Membranes Moist - Respiratory Exam Respiratory Exam: Clear to Auscultation Bilateral (no r/r/w), Wheezing - Cardiovascular Exam Cardiovascular Exam: REGULAR RHYTHM - GI/Abdominal Exam GI & Abdominal Exam: Normal Bowel Sounds, Soft - Extremities Exam Extremities exam: Positive for: pedal edema (1+ b/l). Negative for: calf tenderness - Neurological Exam Neurological exam: Alert, Normal Gait - Psychiatric Exam Psychiatric exam: Normal Mood - Skin Skin Exam: Normal Color, Warm Discharge Plan - Discharge Medications Prescriptions: RX: Doxycycline Hyclate [Doryx] 100 mg PO Q12 #15 cap Metoprolol Tartrate [Lopressor] 25 mg PO Q12 #28 tab RX: Oseltamivir Cap [Tamiflu Cap] 75 mg PO BID #3 capsule - Follow Up Plan Condition: GUARDED Disposition: HOME/ ROUTINE Instructions: Heart Healthy Diet, Atrial Fibrillation (DC), Respiratory Distress Syndrome, Adult (DC) Additional Instructions: You are being discharged from [facility]. Upon discharge please take the following medications as prescribed- you will have medications delivered to your bedside: -Prednisone 10mg taper as follows for 9 days total- Disp#18: Prednisone 30mg daily for 3 days Prednisone 20mg daily for 3 days Prednisone 10mg daily for 3 days -Tamiflu 75mg 1 tab twice daily for 2 more days- first dose tonight 10/11/18- Disp#3 -Doxycycline 100mg 1 tab twice daily for 8 more days- first dose tonight 10/11/18- Disp#15 - Lopressor 25mg 1 tab twice daily Disp#28 Please STOP taking Lisinopril 20mg daily. Please resume all other home medications. Please follow up with your PMD Dr. Wilcox within 7 days of discharge. Please also follow up with pulmonology within 10 days of discharge. You will need a sleep study as an outpatient. Please follow up with your ham stringer Dr. Miramontes within 10 days of discharge. If symptoms return please visit your nearest Emergency Room. Referrals: Nish Wilcox MD [Primary Care Provider] - Bernardo Miramontes MD [Staff Provider] - <Karthikeyan Coburn - Last Filed: 10/12/18 16:46> Provider - Provider Date of Admission: 10/08/18 16:37 Attending physician: Karthikeyan Coburn MD Primary care physician: Nish Wilcox MD Consults: 10/08/18 16:05 Consult [Physician Consult] Stat Comment: Consulting Provider: Bernardo Miramontes Consulting Physician: Bernardo Miramontes Reason for Consult: NSTEMI 10/08/18 20:12 Consult [Physician Consult] Routine Comment: Consulting Provider: Kt Nieves Consulting Physician: Kt Nieves Reason for Consult: fever 10/08/18 22:08 Social Work Referral Routine Comment: Baylock risk assessment score 7 Physician Instructions: Reason For Exam: Protocol 10/08/18 22:55 Transition In Care/Readmission Reduction Routine Comment: Physician Instructions: Reason For Exam: protocol 10/09/18 10:04 Physician Consult Routine Comment: Consulting Provider: Abdiel Rubio Consulting Physician: Abdiel Rubio Reason for Consult: Co2 retention 10/11/18 13:04 Case Management Referral Routine Comment: Physician Instructions: Reason For Exam: PT recommends home with services Reason for Referral: Discharge Planning Hospital Course - Lab Results Lab Results: Micro Results 10/08/18 13:30 Blood-Venous Blood Culture - Preliminary NO GROWTH AFTER 4 DAYS 10/08/18 13:00 Blood-Venous Blood Culture - Preliminary NO GROWTH AFTER 4 DAYS Most Recent Lab Values WBC 8.2 10^3/uL (4.5-11.0) 10/12/18 07:00 RBC 4.39 10^6/uL (3.5-6.1) 10/12/18 07:00 Hgb 13.8 g/dL (14.0-18.0) L 10/12/18 07:00 Hct 42.2 % (42.0-52.0) 10/12/18 07:00 MCV 96.1 fl (80.0-105.0) 10/12/18 07:00 MCH 31.4 pg (25.0-35.0) 10/12/18 07:00 MCHC 32.7 g/dl (31.0-37.0) 10/12/18 07:00 RDW 13.6 % (11.5-14.5) 10/12/18 07:00 Plt Count 181 10^3/uL (120.0-450.0) 10/12/18 07:00 MPV 10.9 fl (7.0-11.0) 10/12/18 07:00 Gran % 62.3 % (50.0-68.0) 10/08/18 13:00 Neut % (Auto) 77.9 % (50.0-68.0) H 10/12/18 07:00 Lymph % (Auto) 14.4 % (22.0-35.0) L 10/12/18 07:00 Cooke % (Auto) 7.7 % (1.0-6.0) H 10/12/18 07:00 Eos % (Auto) 0.0 % (1.5-5.0) L 10/12/18 07:00 Baso % (Auto) 0.0 % (0.0-3.0) 10/12/18 07:00 Gran # 3.99 (1.4-6.5) 10/08/18 13:00 Lymph # (Auto) 1.2 (1.2-3.4) 10/12/18 07:00 Cooke # (Auto) 0.6 (0.1-0.6) 10/12/18 07:00 Eos # (Auto) 0.0 (0.0-0.7) 10/12/18 07:00 Baso # (Auto) 0.00 K/mm3 (0.0-2.0) 10/12/18 07:00 Absolute Neuts (auto) 6.36 (1.4-6.5) 10/12/18 07:00 PT 20.3 SECONDS (9.4-12.5) H 10/12/18 07:00 INR 1.80 10/12/18 07:00 APTT 26.6 Seconds (26.9-38.3) L 10/12/18 07:00 pCO2 68 mm/Hg (35-45) H 10/08/18 16:24 pO2 60 mm/Hg (30-55) H 10/09/18 08:15 HCO3 33.5 mmol/L (21-28) H 10/08/18 16:24 ABG pH 7.30 (7.35-7.45) L 10/08/18 16:24 ABG Total CO2 35.6 mmol.L (22-28) H 10/08/18 16:24 ABG O2 Saturation 96.4 % (95-98) 10/08/18 16:24 ABG O2 Content 17.5 ML/dl (15-23) 10/08/18 16:24 ABG Base Excess 4.9 mmol/L (-2.0-3.0) H 10/08/18 16:24 ABG Hemoglobin 13.2 g/dL (11.7-17.4) 10/08/18 16:24 ABG Carboxyhemoglobin 2.0 % (0.5-1.5) H 10/08/18 16:24 POC ABG HHb (Measured) 3.5 % (0-5) 10/08/18 16:24 ABG Methemoglobin 0.6 % (0.0-3.0) 10/08/18 16:24 ABG O2 Capacity 18.2 mL/dl (16-24) 10/08/18 16:24 VBG pH 7.26 (7.32-7.43) L 10/09/18 08:15 VBG pCO2 81.0 (40-60) H* 10/09/18 08:15 VBG HCO3 36.3 mmol/l (21-28) H 10/09/18 08:15 VBG Total CO2 38.8 mmol.L (22-28) H 10/09/18 08:15 VBG O2 Sat (Calc) 93.3 % (40-65) H 10/09/18 08:15 VBG Base Excess 6.2 mmol/L (0.0-2.0) H 10/09/18 08:15 VBG Potassium 4.5 mmol/L (3.6-5.2) 10/09/18 08:15 Hgb O2 Saturation 93.9 % (95.0-98.0) L 10/08/18 16:24 Sodium 143.0 mmol/L (132-148) 10/09/18 08:15 Chloride 104.0 mmol/L (98-107) 10/09/18 08:15 Glucose 125 mg/dl (75-110) H 10/09/18 08:15 Lactate 1.3 mmol/L (0.7-2.1) 10/09/18 08:15 FiO2 21.0 % 10/09/18 08:15 Crit Value Called To Syl 10/09/18 08:15 Crit Value Called By 10/09/18 08:15 Blood Gas Notified Time 830 10/09/18 08:15 Sodium 141 mmol/L (132-148) 10/12/18 07:00 Potassium 4.4 mmol/L (3.6-5.0) 10/12/18 07:00 Chloride 98 mmol/L (98-107) 10/12/18 07:00 Carbon Dioxide 37 mmol/L (21-33) H 10/12/18 07:00 Anion Gap 11 (10-20) 10/12/18 07:00 BUN 34 mg/dL (7-21) H 10/12/18 07:00 Creatinine 0.8 mg/dl (0.8-1.5) 10/12/18 07:00 Est GFR ( Amer) > 60 10/12/18 07:00 Est GFR (Non-Af Amer) > 60 10/12/18 07:00 Random Glucose 147 mg/dL (70-110) H 10/12/18 07:00 Calcium 9.3 mg/dL (8.4-10.5) 10/12/18 07:00 Phosphorus 4.5 mg/dL (2.5-4.5) 10/12/18 07:00 Magnesium 2.3 mg/dL (1.7-2.2) H 10/12/18 07:00 Total Bilirubin 0.6 mg/dL (0.2-1.3) 10/12/18 07:00 AST 48 U/L (17-59) 10/12/18 07:00 ALT 51 U/L (7-56) 10/12/18 07:00 Alkaline Phosphatase 65 U/L (38-126) 10/12/18 07:00 Lactate Dehydrogenase 644 U/L (333-699) 10/08/18 13:00 Total Creatine Kinase 134 U/L (35-230) 10/08/18 13:00 Troponin I 0.04 ng/mL D 10/09/18 08:15 NT-Pro-B Natriuret Pep 958 pg/mL (0-450) H 10/08/18 13:00 Total Protein 7.0 g/dL (5.8-8.3) 10/12/18 07:00 Albumin 3.8 g/dL (3.0-4.8) 10/12/18 07:00 Globulin 3.2 gm/dL 10/12/18 07:00 Albumin/Globulin Ratio 1.2 (1.1-1.8) 10/12/18 07:00 Procalcitonin < 0.05 NG/ML (0.19-0.49) L 10/09/18 08:15 Venous Blood Potassium 4.5 mmol/L (3.6-5.2) 10/09/18 08:15 Influenza Typ A,B (EIA) Negative for flu a/b (NEGATIVE) 10/08/18 13:00 - Hospital Course Hospital Course: Pt seen and examined by me. I have reviewed the note of the territory sales manager medical and I agree with it. I have discussed the assessment and plan with the resident. I have reviewed the medications and the last labs.Pt with acute COPD and acute Bronchitis. He is on tapering dose of steriods. Heis on Tamiflu for possible Flu. A fib is controlled. Will D/C home and pt will f/u with PMD. He does have LE edema and will continue with Lasix at home.
[2018-10-12 06:17] VITALS: O2SAT 99
[2018-10-12 07:17] LABS: HEMOGLOBIN 13.8 g/dL (14.0-18.0); LYMPH # 1.2 (1.2-3.4); LYMPH % 14.4 % (22.0-35.0); MEAN CELL VOLUME 96.1 fl (80.0-105.0); MEAN CORPUSCULAR HEMOGLOBIN 31.4 pg (25.0-35.0); MEAN CORPUSCULAR HGB CONC 32.7 g/dl (31.0-37.0); MEAN PLATELET VOLUME 10.9 fl (7.0-11.0); MONO # 0.6 (0.1-0.6); MONO % 7.7 % (1.0-6.0); RBC 4.39 10^6/uL (3.5-6.1); RED CELL DISTRIBUTION WIDTH 13.6 % (11.5-14.5); WHITE BLOOD COUNT 8.2 10^3/uL (4.5-11.0)
[2018-10-12 07:34] LABS: INR 1.8; PARTIAL THROMBOPLASTIN TIME 26.6 Seconds (26.9-38.3); PROTHROMBIN TIME 20.3 SECONDS (9.4-12.5)
[2018-10-12 08:07] LABS: ALB/GLOB RATIO 1.2 (1.1-1.8); ALBUMIN 3.8 g/dL (3.0-4.8); ALT/SGPT 51 U/L (7-56); AST/SGOT 48 U/L (17-59); BLOOD UREA NITROGEN 34 mg/dL (7-21); CALCIUM 9.3 mg/dL (8.4-10.5); GFR NON-AFRICAN AMERICAN > 60
--- NOTE | 2018-10-12 08:31 | PN ---
DATE: 10/12/2018 SUBJECTIVE: The patient appears comfortable this morning. He is not short of breath at rest. PHYSICAL EXAMINATION: VITAL SIGNS: Temperature is 98.4, pulse 69, respirations 19, blood pressure 156/75. Oxygen saturation on BiPap is 99%. HEENT: Normocephalic, atraumatic. No JVD. CARDIOVASCULAR: Positive S1, S2. No S3 gallop. LUNGS: Decreased breath sounds at the bases. Very minimal/less rhonchi. No wheezing. EXTREMITIES: Mild edema. No cyanosis, no clubbing. Calves are nontender to palpation. GASTROINTESTINAL: Abdomen is soft, nontender and nondistended. Bowel sounds are positive. SKIN: No acute rash. NEUROLOGIC: Exam limited at the present time. IMPRESSION: 1. Acute bronchitis. 2. Probable chronic obstructive pulmonary disease - possibly advanced. 3. Mild respiratory insufficiency. 4. Non-ST elevation myocardial infarction. 5. Atrial fibrillation. 6. Rule out obstructive sleep apnea. PLAN: The patient appears very comfortable this morning. He is not short of breath at rest. He does state to feeling much better overall. On physical exam, his bronchospasm has primarily resolved. In addition, there is no significant alveolar-arterial gradient. I will continue the current nebulizer treatments and change to oral steroids this morning. I would continue with the treatment for myocardial infarction and cardiac arrhythmias as per Cardiology. Input by Dr. Miramontes is noted. In addition, as noted in my consultation, the patient will also need a sleep study in the near future - as an outpatient. Clinical status of the patient appears significantly improved - compared to the initial presentation. However, given the above, the future status/prognosis for this patient does remain guarded. I will discuss the above with the attending physician. Abdiel Rubio MD [facility]
[2018-10-12] MEDS: Budesonide 0.5 mg/2 ml Inhal Susp UD IH SCH (09:26)
--- NOTE | 2018-10-12 09:50 | CP.PCM.PN ---
<Almas Mcgraw - Last Filed: 10/12/18 13:27> Subjective - Date & Time of Evaluation Date of Evaluation: 10/12/18 Time of Evaluation: 07:00 - Subjective Subjective: Infectious disease progress note: Pt seen and examined at bedside. No acute events overnight. Denies any cough, sob, or chest pain. 12 Point ROS performed and neg other than stated above. Objective - Vital Signs/Intake and Output Vital Signs (last 24 hours): Temp Pulse Resp BP Pulse Ox 98.4 F 69 19 156/75 H 99 10/12/18 06:00 10/12/18 06:00 10/12/18 06:00 10/12/18 06:00 10/12/18 06:00 Intake and Output: 10/12/18 10/12/18 06:59 18:59 Intake Total 120 Output Total 700 Balance -580 - Medications Medications: Current Medications Albuterol/Ipratropium (Duoneb 3 Mg/0.5 Mg (3 Ml) Ud) 3 ml IH [id number] [facility] Last Admin: 10/12/18 09:26 Dose: 3 ml Albuterol/Ipratropium (Duoneb 3 Mg/0.5 Mg (3 Ml) Ud) 3 ml IH Q2H PRN PRN Reason: Shortness of Breath Budesonide (Pulmicort Respules) 0.5 mg IH [id number] [facility] Last Admin: 10/12/18 09:26 Dose: 0.5 mg Doxycycline Hyclate (Doryx) 100 mg PO Q12 [facility]; Protocol Stop: 10/19/18 10:01 Last Admin: 10/11/18 21:53 Dose: 100 mg Fluticasone Propionate (Flonase) 1 actuation NS DAILY [facility] Last Admin: 10/11/18 13:51 Dose: 1 spr Furosemide (Lasix) 40 mg IVP DAILY [facility] Last Admin: 10/11/18 09:28 Dose: 40 mg Home Med (Home Med) 1 unit OU HS [facility] Last Admin: 10/11/18 22:43 Dose: 1 unit Home Med (Home Med) 1 unit OU BID [facility] Last Admin: 10/11/18 17:35 Dose: 1 unit Home Med (Home Med) 1 unit OS TID [facility] Last Admin: 10/11/18 17:38 Dose: 1 unit Hydrochlorothiazide (Hydrodiuril) 50 mg PO DAILY [facility] Last Admin: 10/09/18 10:15 Dose: 50 mg Ceftriaxone Sodium (Rocephin 1 Gram Ivpb) 1 gm in 100 mls @ 100 mls/hr IVPB DAILY [facility]; Protocol Last Admin: 10/11/18 09:30 Dose: 100 mls/hr Metoprolol Tartrate (Lopressor) 25 mg PO Q12 [facility] Last Admin: 10/11/18 22:30 Dose: Not Given Oseltamivir Phosphate (Tamiflu Cap) 75 mg PO BID [facility]; Protocol Stop: 10/14/18 13:14 Last Admin: 10/11/18 17:40 Dose: 75 mg Polyethylene Glycol (Miralax) 17 gm PO DAILY [facility] Prednisone (Prednisone Tab) 30 mg PO DAILY [facility] Verapamil HCl (Calan Sr Tab) 120 mg PO DAILY [facility] Last Admin: 10/11/18 09:28 Dose: 120 mg Warfarin Sodium (Coumadin) 2.5 mg PO 1800 [facility]; Protocol Last Admin: 10/11/18 17:37 Dose: 2.5 mg - Labs Labs: 10/12/18 07:00 10/12/18 07:00 PT 20.3 SECONDS (9.4-12.5) H 10/12/18 07:00 INR 1.80 10/12/18 07:00 APTT 26.6 Seconds (26.9-38.3) L 10/12/18 07:00 - Constitutional Appears: No Acute Distress - Head Exam Head Exam: ATRAUMATIC, NORMOCEPHALIC - Eye Exam Eye Exam: EOMI - ENT Exam ENT Exam: Mucous Membranes Moist - Respiratory Exam Respiratory Exam: Clear to Ausculation Bilateral. absent: Rales, Wheezes - Cardiovascular Exam Cardiovascular Exam: RRR, +S1, +S2 - GI/Abdominal Exam GI & Abdominal Exam: Soft. absent: Distended, Tenderness - Extremities Exam Extremities Exam: absent: Calf Tenderness, Pedal Edema - Neurological Exam Neurological Exam: Alert, Awake - Psychiatric Exam Psychiatric exam: Normal Mood - Skin Skin Exam: Dry, Warm Assessment and Plan - Assessment and Plan (Free Text) Assessment: 82 M with PMHx of A-fibrillation on coumadin, hypertension, and hypercholesterolemia, presents following his PMD visit were he was reportedly sob with SPO2 of 83%, accompanied with cough and fever. r/o COPD exac vs CAP vs influenza. - Cont abx with Rocephin and Doxy, As outpatient continue to complete a 5-7 day course of abx - Cont Tamiflu to complete 5 days - f/u septic workup - Cont to monitor clinically Case and plan was reviewed and discussed with Dr Garner. <PascualMiriamd Aki Reinoso - Last Filed: 10/12/18 15:47> Objective - Vital Signs/Intake and Output Vital Signs (last 24 hours): Temp Pulse Resp BP Pulse Ox 97.3 F L 61 18 155/77 H 99 10/12/18 12:00 10/12/18 12:00 10/12/18 12:00 10/12/18 12:00 10/12/18 06:00 Intake and Output: 10/12/18 10/12/18 06:59 18:59 Intake Total 120 Output Total 700 Balance -580 - Labs Labs: 10/12/18 07:00 10/12/18 07:00 PT 20.3 SECONDS (9.4-12.5) H 10/12/18 07:00 INR 1.80 10/12/18 07:00 APTT 26.6 Seconds (26.9-38.3) L 10/12/18 07:00 Assessment and Plan - Assessment and Plan (Free Text) Assessment: Infectious diseases Attending Physician Attestation Patient seen and examined, discussed with medical office technology instructor. I have reviewed the patient's history of present illness, past medical, social, personal and family histories, pertinent physical exam findings, course so far in this hospital admission, pertinent laboratory and imaging results. I agree with the above findings, assessment and plan. Complete 5-7 days of PO Doxycycline for COPD execerbation R/O pneumonia, with outpatient follow up with PMD. Finished 5 days of Tamiflu for R/O Influenza.
[2018-10-12] MEDS ORDERED: POLYETHYLENE GLYCOL 3350 17 GM/Dose PACKET PO SCH (10:00)
[2018-10-12] MEDS: Fluticasone Nasal 50 mcg/Spray NS SCH (10:21)
[2018-10-12] MEDS: Verapamil 120 mg ER Tab PO SCH (10:21)
[2018-10-12] MEDS: COMBIGAN OU SCH (10:21)
[2018-10-12] MEDS: cefTRIAXone 1 gm 1 GM/100 ML BAG IVPB SCH (10:23)
[2018-10-12] MEDS: DORZOLAMIDE OS SCH (10:32)
[2018-10-12 12:06] VITALS: BP 155/77; PULSE 61; RESP 18; TEMP 97.3
== END 2018-10-12 13:38 | disposition home health service (06) | DRG 190 ==
LOC: ED 11:52 → ERH 16:37 → 2RSO 20:14
PROVIDERS: ADMIT Internal Medicine Nephrology; ATTEND Internal Medicine Nephrology
PROC: 5A09457 Assistance with Respiratory Ventilation, 24-96 Consecutive Hours, Continuous Positive Airway Pressure (ICD-10-PCS; principal; 2018-10-08)
PROC: 3E0F7GC Introduction of Other Therapeutic Substance into Respiratory Tract, Via Natural or Artificial Opening (ICD-10-PCS; 2018-10-09)
DX: J44.1 Chronic obstructive pulmonary disease with (acute) exacerbation (principal); J96.90 Respiratory failure, unspecified, unspecified whether with hypoxia or hypercapnia; Z68.41 Body mass index [BMI] 40.0-44.9, adult; J20.9 Acute bronchitis, unspecified; J44.0 Chronic obstructive pulmonary disease with (acute) lower respiratory infection; I48.2 Chronic atrial fibrillation; E66.01 Morbid (severe) obesity due to excess calories; E78.00 Pure hypercholesterolemia, unspecified; I35.0 Nonrheumatic aortic (valve) stenosis; I11.0 Hypertensive heart disease with heart failure; I50.9 Heart failure, unspecified; R79.1 Abnormal coagulation profile; Z79.01 Long term (current) use of anticoagulants; Z96.653 Presence of artificial knee joint, bilateral; Z87.891 Personal history of nicotine dependence